=== PATIENT | female | born 1975 | race Two or more races ===

== ENCOUNTER 2017-05-05 17:38 | Emergency (ER) | payer SELFPAY ==
[~2017-05-05] VITALS: Ht 160 cm; Wt 61.2 kg
[2017-05-05 17:50] VITALS: BP 120/69
[2017-05-05] MEDS ORDERED: HYDROcodone/APAP 5/325MG 1 TAB TABLET PO ONE (18:15)
[2017-05-05] MEDS ORDERED: ONDANSETRON ODT 4 MG TAB.RAPDIS. PO ONE (18:15)
[2017-05-05] MEDS ORDERED: ONDANSETRON ODT 4 MG TAB.RAPDIS. ONE (18:16)
[2017-05-05] MEDS ORDERED: HYDR-2762 PO (18:42)
[2017-05-05] MEDS ORDERED: NAPR500T8 PO (18:43)
--- NOTE | 2017-05-05 18:43 | PHYS DOC ---
Past Medical History Past Medical History: No Pertinent History Past Surgical History: Cholecystectomy, Gastric Bypass, Other Additional Past Surgical Histo: D&C Alcohol Use: None Drug Use: None Adult General Chief Complaint Chief Complaint: SHOULDER INJURY HPI HPI Patient is a 41 year old female with history of CAD, high cholesterol, [place], who presents with moderate left shoulder pain that began after she tripped on things left on the floor in the son's room and fell on the shoulder. Patient denies any loss of consciousness. Review of Systems Review of Systems Constitutional: Denies fever or chills [] Musculoskeletal: Left shoulder pain Integument: Denies rash or skin lesions [] Neurologic: Denies headache, focal weakness or sensory changes [] Current Medications Current Medications Current Medications Medications (Trade) Dose Ordered Sig/Sun Start Time Stop Time Status Last Admin Dose Admin Acetaminophen/ Hydrocodone Bitart (Lortab 5/325) 2 tab 1X ONCE 05/05/17 18:15 05/05/17 18:16 DC 05/05/17 18:14 2 TAB Ondansetron HCl (Zofran Odt) 4 mg STK-MED ONCE 05/05/17 18:16 05/05/17 18:17 DC Allergies Allergies Allergies Coded Allergies Type Severity Reaction Last Updated Verified No Known Drug Allergies 06/16/14 No Physical Exam Physical Exam Constitutional: Well developed, well nourished, no acute distress, non-toxic appearance. [] Skin: Warm, dry, no erythema, no rash. [] Back: No tenderness, no CVA tenderness. [] Extremities: Left clavicle is obviously deformed. Limited range of motion to the left upper extremity due to pain. Adequate range of motion to the left fingers. Adequate radial medial and ulnar sensation to the left fingers. + 2 left radial pulse. Cap refill less than 2 seconds and left fingers. Sensation intact to the left upper extremity. Neurologic: Alert and oriented X 3, normal motor function, normal sensory function, no focal deficits noted. [] Psychologic: Affect normal, judgement normal, mood normal. [] Current Patient Data Vital Signs Vital Signs Date Time Temp Pulse Resp B/P (MAP) Pulse Ox O2 Delivery O2 Flow Rate FiO2 05/05/17 18:14 Room Air 05/05/17 17:50 98.0 91 18 95 98.0 EKG EKG [] Radiology/Procedures Radiology/Procedures [] Course & Med Decision Making Course & Med Decision Making Pertinent Labs and Imaging studies reviewed. (See chart for details) []Patient is in the ED with left clavicle pain after falling on the left shoulder. Left shoulder and left clavicle x-rays interpreted by Dr. Henson are positive for clavicle shaft fracture. Patient was placed in a sling discharged with hydrocodone. Follow-up with orthopedic doctor tomorrow by calling his office Dragon Disclaimer Dragon Disclaimer This electronic medical record was generated, in whole or in part, using a voice recognition dictation system. Departure Departure Impression: Primary Impression: Clavicle fracture, shaft Additional Impression: Fall from standing Disposition: HOME, SELF-CARE Condition: STABLE Referrals: Nakita DHALIWAL MD (PCP) ROD FARR II, MD call his office first thing tomorrow morning for follow up appointment Patient Instructions: Clavicle Fracture Additional Instructions: You have left clavicle fracture. Contact the provided orthopedic doctor first thing tomorrow morning for follow-up. Apply ice to the affected extremity. You can elevate it as tolerated. Do not drive or operate machinery on the pain medicine. Scripts Naproxen (NAPROXEN) 500 Mg Tablet. 1 TAB PO BID, #60 TAB 0 Refills Prov: JUSTICE LAUREANO APRN 05/05/17 Hydrocodone Bit/Acetaminophen (HYDROCODONE-APAP 7.5-325 ) 1 Each Tablet 1 TAB PO PRN Q4-6HRS Y for PAIN, #40 TAB 0 Refills Prov: JUSTICE LAUREANO APRN 05/05/17 Problem Qualifiers Primary Impression: Clavicle fracture, shaft Encounter type: initial encounter Fracture type: closed Fracture alignment : displaced Laterality: left Qualified Codes: S42.022A - Displaced fracture of shaft of left clavicle, initial encounter for closed fracture Additional Impression: Fall from standing Encounter type: initial encounter Qualified Codes: W19.XXXA - Unspecified fall, initial encounter JUSTICE LAUREANO APRN May 05, 2017 18:43
--- NOTE | 2017-05-06 08:23 | RAD ---
Left shoulder, 2 views, 05/05/2017: History: Fall, injury There is a comminuted fracture of the clavicle at the junction of its middle and distal thirds. There is mild overriding of the fracture fragments with superior displacement and angulation of the distal end of the proximal fracture fragment. The glenohumeral joint is unremarkable. No additional fracture is seen. IMPRESSION: Displaced left clavicular fracture.
--- NOTE | 2017-05-06 08:24 | RAD ---
Left clavicle, 2 views, 05/05/2017: History: Fall, injury There is a mildly displaced and angulated fracture of the left clavicle as described on the shoulder radiographs. No additional abnormality is seen. IMPRESSION: Acute left clavicular fracture.
== END 2017-05-05 18:47 | disposition home or self-care (01) ==
LOC: ER 17:38
DX: S42.022A Displaced fracture of shaft of left clavicle, initial encounter for closed fracture (principal); I25.10 Atherosclerotic heart disease of native coronary artery without angina pectoris; E78.00 Pure hypercholesterolemia, unspecified; I25.2 Old myocardial infarction; W01.0XXA Fall on same level from slipping, tripping and stumbling without subsequent striking against object, initial encounter; Y93.89 Activity, other specified; Y92.89 Other specified places as the place of occurrence of the external cause; Y99.8 Other external cause status
CPT/HCPCS: 73000; 73030; 99284; Q0162

== ENCOUNTER 2017-05-18 07:47 | Emergency (ER) | payer SELFPAY ==
[~2017-05-18] VITALS: Ht 162.6 cm; Wt 62.1 kg
[~2017-05-18 07:47] MED LIST: HYDR-2762 PO; NAPR500T8 PO
[2017-05-18] MEDS ORDERED: IV NORMAL SALINE 1000ML BAG 1,000 ML IV ONE (08:00)
[2017-05-18 08:03] LABS: BASE EXCESS COOX 1 mmol/L (-3-3); HCO3 COOX 28 mmol/L (21-28); PCO2 COOX 52 mmHg (35-46); PH COOX 7.35 (7.35-7.45); PO2 COOX 79 mmHg (75-108)
[2017-05-18 08:04] LABS: CARBON MONOXIDE 6.9 % (0.0-1.9); FIO2 COOX 21; SAT O2 COOX 95 % (92-99); TOTAL HEMOGLOBIN 13.2 g/dL
[2017-05-18 08:05] LABS: METHEMOGLOBIN 0.3 % (0.0-1.9)
--- NOTE | 2017-05-18 08:07 | EKG ---
[facility] [address] [place] [address] Test Date: 2017-05-18 Test Time: 08:00:10 Pat Name: CHELSEA WEISS Department: Room: Gender: F Otologist: : 1975 Requested By: LUIS F JURADO Order Number: [id number] Reading MD: Gail Beltran Measurements Intervals [place] Rate: 85 P: 78 CO: 134 QRS: 98 QRSD: 84 T: 54 QT: 374 QTc: 445 Interpretive Statements SINUS RHYTHM RIGHTWARD AXIS OTHERWISE NORMAL ECG Electronically Signed On 05-18-2017 20:09:16 CDT by Gail Beltran
[2017-05-18 08:09] LABS: BASO % 1 % (0-3); EOS % 1 % (0-3); HEMATOCRIT 39.6 % (36.0-47.0); HEMOGLOBIN 12.9 g/dL (12.0-15.5); LYMPH # 3.4 x10^3/uL (1.0-4.8); LYMPH % 55 % (24-48); MEAN CORPUSCULAR HEMOGLOBIN 28 pg (25-35); MEAN CORPUSCULAR HGB CONC 33 g/dL (31-37); MEAN CORPUSCULAR VOLUME 85 fL (79-100); MONO % 7 % (0-9); NEUT % 36 % (31-73); PLATELET COUNT 376 x10^3/uL (140-400); RED BLOOD COUNT 4.65 x10^6/uL (3.50-5.40); RED CELL DISTRIBUTION WIDTH 15.3 % (11.5-14.5); WHITE BLOOD COUNT 6.2 x10^3/uL (4.0-11.0)
[2017-05-18 08:26] LABS: CREATININE 0.6 mg/dL (0.6-1.0); GFR 109.1; POTASSIUM 4.2 mmol/L (3.5-5.1)
[2017-05-18 08:31] LABS: ALBUMIN 3.5 g/dL (3.4-5.0); ALBUMIN/GLOBULIN RATIO 0.9 (1.0-1.7); TOTAL BILIRUBIN 0.2 mg/dL (0.2-1.0); TOTAL PROTEIN 7.6 g/dL (6.4-8.2)
[2017-05-18 08:32] LABS: BARBITURATES NEG (NEG); BENZODIAZEPINES NEG (NEG); CANNABINOIDS NEG (NEG); COCAINE POS (NEG); METHADONE NEG (NEG); OPIATES NEG (NEG); PHENCYCLIDINE NEG (NEG)
[2017-05-18 08:35] LABS: ETHANOL 225 mg/dL (0-10)
--- NOTE | 2017-05-18 08:58 | PHYS DOC ---
Past Medical History Past Medical History: No Pertinent History Past Surgical History: Cholecystectomy, Gastric Bypass, Other Additional Past Surgical Histo: D&C Alcohol Use: None Drug Use: None Adult General Chief Complaint Chief Complaint: suicidal ideation HPI HPI Patient is a 42 year old female who presents after being found sleeping in a running car in an enclosed garage. Length of time in car is unknown, pt was lethargic. Brought in by EMS, who was called by children that found pt. She has reportedly had "difficulties" lately, but unclear if this was a suicide attempt. no other history available. Pt's meds are with her, no evidence that she overdosed. Pt later admitted she was trying to harm herself and drank alcohol, denies any ingestions of pills. Review of Systems Review of Systems Unobtainable due to clinical condition. Current Medications Current Medications Current Medications Medications (Trade) Dose Ordered Sig/Sun Start Time Stop Time Status Last Admin Dose Admin Sodium Chloride 1,000 ml @ 1,000 mls/hr 1X ONCE 05/18/17 08:00 05/18/17 08:59 DC 05/18/17 08:25 1,000 MLS/HR Allergies Allergies Allergies Coded Allergies Type Severity Reaction Last Updated Verified No Known Drug Allergies 06/16/14 No Physical Exam Physical Exam Constitutional: Well developed, well nourished, lethargic, smells heavily of etoh HENT: Normocephalic, atraumatic, bilateral external ears normal, oropharynx moist, no oral exudates, nose normal. [] Eyes: PERRLA Neck: Normal range of motion, no tenderness, supple, no stridor. [] Cardiovascular:Heart rate regular with regular rhythm, no murmur [] Lungs & Thorax: Bilateral breath sounds clear to auscultation [] Abdomen: soft, no tenderness, no masses, no pulsatile masses. [] Skin: Warm, dry, hickies on the R side of neck Back: No tenderness, no CVA tenderness. [] Extremities: No tenderness, no cyanosis, no clubbing, ROM intact, no edema. [] Neurologic: clinically intoxicated, withdraws from pain, normal speech when she talks Psychologic: unable to assess Current Patient Data Vital Signs Vital Signs Date Time Temp Pulse Resp B/P (MAP) Pulse Ox O2 Delivery O2 Flow Rate FiO2 10/24/17 07:50 97.4 92 17 102/69 (80) 98 Room Air 97.4 Lab Values Laboratory Tests Test 05/18/17 07:55 05/18/17 08:00 05/18/17 08:17 O2 Saturation 95 % (92-99) Arterial Blood pH 7.35 (7.35-7.45) Arterial Blood pCO2 at Patient Temp 52 mmHg (35-46) H Arterial Blood pO2 at Patient Temp 79 mmHg (75-108) Arterial Blood HCO3 28 mmol/L (21-28) Arterial Blood Base Excess 1 mmol/L (-3-3) Oxyhemoglobin 88.0 % Methemoglobin 0.3 % (0.0-1.9) Carbon Monoxide, Quantitative 6.9 % (0.0-1.9) H FiO2 21 White Blood Count 6.2 x10^3/uL (4.0-11.0) Red Blood Count 4.65 x10^6/uL (3.50-5.40) Hemoglobin 12.9 g/dL (12.0-15.5) Hematocrit 39.6 % (36.0-47.0) Mean Corpuscular Volume 85 fL (79-100) Mean Corpuscular Hemoglobin 28 pg (25-35) Mean Corpuscular Hemoglobin Concent 33 g/dL (31-37) Red Cell Distribution Width 15.3 % (11.5-14.5) H Platelet Count 376 x10^3/uL (140-400) Neutrophils (%) (Auto) 36 % (31-73) Lymphocytes (%) (Auto) 55 % (24-48) H Monocytes (%) (Auto) 7 % (0-9) Eosinophils (%) (Auto) 1 % (0-3) Basophils (%) (Auto) 1 % (0-3) Neutrophils # (Auto) 2.2 x10^3uL (1.8-7.7) Lymphocytes # (Auto) 3.4 x10^3/uL (1.0-4.8) Monocytes # (Auto) 0.4 x10^3/uL (0.0-1.1) Eosinophils # (Auto) 0.1 x10^3/uL (0.0-0.7) Basophils # (Auto) 0.0 x10^3/uL (0.0-0.2) Sodium Level 143 mmol/L (136-145) Potassium Level 4.2 mmol/L (3.5-5.1) Chloride Level 104 mmol/L (98-107) Carbon Dioxide Level 31 mmol/L (21-32) Anion Gap 8 (6-14) Blood Urea Nitrogen 11 mg/dL (7-20) Creatinine 0.6 mg/dL (0.6-1.0) Estimated GFR (Cockcroft-Gault) 109.1 BUN/Creatinine Ratio 18 (6-20) Glucose Level 75 mg/dL (70-99) Calcium Level 9.0 mg/dL (8.5-10.1) Total Bilirubin 0.2 mg/dL (0.2-1.0) Aspartate Amino Transferase (AST) 30 U/L (15-37) Alanine Aminotransferase (ALT) 21 U/L (14-59) Alkaline Phosphatase 83 U/L (46-116) Ammonia < 10 mcmol/L (11-34) L Total Protein 7.6 g/dL (6.4-8.2) Albumin 3.5 g/dL (3.4-5.0) Albumin/Globulin Ratio 0.9 (1.0-1.7) L Salicylates Level < 2.8 mg/dL (2.8-20.0) L Salicylate Last Dose Date Unknown Salicylate Last Dose Time Unknown Acetaminophen Level < 2 mcg/ml (10-30) L Acetaminophen Last Dose Date Unknown Acetaminophen Last Dose Time Unknown Ethyl Alcohol Level 225 mg/dL (0-10) H Urine Opiates Screen Neg (NEG) Urine Methadone Screen Neg (NEG) Urine Barbiturates Neg (NEG) Urine Phencyclidine Screen Neg (NEG) Urine Amphetamine/Methamphetamine Neg (NEG) Urine Benzodiazepines Screen Neg (NEG) Urine Cocaine Screen Pos (NEG) Urine Cannabinoids Screen Neg (NEG) Urine Ethyl Alcohol Pos (NEG) Laboratory Tests 05/18/17 08:00 Laboratory Tests 05/18/17 08:00 EKG EKG []85 bpm, sinus, rightward axis, normal intervals, no ST elevation or depression appreciated, nonischemic T waves, interpreted by or Radiology/Procedures Radiology/Procedures [] Course & Med Decision Making Course & Med Decision Making Pertinent Labs and Imaging studies reviewed. (See chart for details) IV fluids initiated, patient on playground monitor and continuous pulse ox. No signs of hypoxia. air sampling and monitoring shows 83 bpm without appreciable arrhythmia. Pulse ox shows 99% on room air with good waveform, both interpreted by me Alcohol, UDS, lab work, ammonia level, acetaminophen and salicylate levels drawn. She has significantly elevated alcohol level, urine drug screen was positive for cocaine but incidentally not positive for benzos, which she is prescribed. Contacted Herson of the PAT team for evaluation of the patient.\\ Pt admitted to and agreeable to admission. her carboxy hemoglobin slightly elevated, however she is a smoker and she continued to improve with her sobriety in the ED and had no neurologic sequelae. Pt accepted to [facility] for admission. We will send by EMS. Dragon Disclaimer Dragon Disclaimer This electronic medical record was generated, in whole or in part, using a voice recognition dictation system. Departure Departure Impression: Primary Impression: Suicidal ideation Additional Impression: Alcohol abuse Disposition: 65 XFER TO PSYCH HOSP/UNIT Condition: IMPROVED Referrals: Nakita DHALIWAL MD (PCP) Patient Instructions: Alcohol Intoxication, Suicidal Feelings, How to Help Yourself Additional Instructions: We are transferring you to a psychiatric facility for further evaluation. Problem Qualifiers LUIS F JURADO MD May 18, 2017 08:58
[2017-05-18 13:37] VITALS: BP 117/76
[2017-05-21] MEDS ORDERED: OXYC-323 PO (15:09)
[2017-05-21] MEDS ORDERED: DOCU100C28 PO (15:11)
[2017-05-21] MEDS ORDERED: PANT40TA5 PO (15:11)
[2017-05-21] MEDS ORDERED: CYCL10TA2 PO (15:12)
[2017-05-21] MEDS ORDERED: ZOLP10TA4 PO (15:13)
[2017-05-21] MEDS ORDERED: CLON0.5T PO (15:14)
== END 2017-05-18 13:40 ==
LOC: ER 07:47
DX: R45.851 Suicidal ideations (principal); F10.10 Alcohol abuse, uncomplicated; R53.83 Other fatigue
CPT/HCPCS: 36415; 36600; 80053; 80307; 80329; 82140; 82805; 85025; 93005; 96360; 99285; G0480; J7030; G0479

== ENCOUNTER 2017-05-24 05:35 | Day surgery (SDC) | payer OTHER ==
[~2017-05-24] VITALS: Ht 160 cm; Wt 63.5 kg
[~2017-05-24 05:35] MED LIST changes: +CLON0.5T PO; +CYCL10TA2 PO; +DOCU100C28 PO; +OXYC-323 PO; +PANT40TA5 PO; +ZOLP10TA4 PO
[2017-05-24] MEDS ORDERED: IV RINGERS,LACTATED 1000ML 1,000 ML IV SCH (07:00)
[2017-05-24] MEDS ORDERED: fentaNYL PF VIAL 100 MCG/2 ML VIAL IV PRN (07:00)
[2017-05-24] MEDS ORDERED: MORPHINE SULFATE 2 MG/ML DISP.SYRIN. IV PRN (07:00)
[2017-05-24] MEDS ORDERED: HYDROmorphone 2 MG/ML VIAL IV PRN (07:00)
[2017-05-24] MEDS ORDERED: PROCHLORPERAZINE 10 MG/2 ML VIAL. IV PRN (07:00)
[2017-05-24] MEDS ORDERED: LIDOCAINE 1% PF 2 ML VIAL. ID PRN (07:00)
[2017-05-24] MEDS ORDERED: ONDANSETRON PF 4 MG/2 ML VIAL. IV PRN (07:00)
--- NOTE | 2017-05-24 07:37 | DISCH ---
DISCHARGE INSTRUCTIONS Condition on Discharge Condition on Discharge: Stable Activity After Discharge Activity Instructions for Disc: Other, see below Other activity instructions: arm to remain in sling Bathing Instructions: Shower-keep dressing dry Weight Bearing Status after Di: Non weight bearing Diet after Discharge Diet after Discharge: Regular Wound Incision Care Wound/Incision Care: Ice to area for comfort, Keep wound/cast CDI, Change dressing Contacting the DR. after DC Call your doctor for: Concerns you may have Follow-Up Follow up with: Humberto in 2wks ROD FARR II, MD May 24, 2017 07:37
--- NOTE | 2017-05-24 07:39 | PDOC ---
BRIEF OPERATIVE NOTE Date: May 24, 2017 Pre-Op Diagnosis Displaced, closed L clavicle fx Post-Op Diagnosis same Procedure Performed ORIF L clavicle fx Surgeon Humberto Kuhn Anesthesia Type: General Blood Loss 25mL Complications none ROD FARR II, MD May 24, 2017 07:39
[2017-05-24] MEDS ORDERED: ROPIVacaine 0.5% PF 30 ML VIAL. ONE (08:56)
[2017-05-24] MEDS ORDERED: MIDAZOLAM HCL/PF 2 MG/2 ML VIAL. ONE ×2 (08:56→09:01)
[2017-05-24] MEDS ORDERED: PROPOFOL 20 ML IV ONE (09:02)
[2017-05-24] MEDS ORDERED: ONDANSETRON PF 4 MG/2 ML VIAL. ONE (09:02)
[2017-05-24] MEDS ORDERED: fentaNYL PF VIAL 100 MCG/2 ML VIAL ONE (09:02)
[2017-05-24] MEDS ORDERED: LIDOCAINE 2% PF Vial for OR 5 ML VIAL. ONE (09:02)
[2017-05-24] MEDS ORDERED: DEXAMETHASONE SOD PHOS 20 MG/5 ML VIAL. ONE (09:02)
[2017-05-24] MEDS ORDERED: FAMOTIDINE 20 MG/2 ML VIAL ONE (09:02)
[2017-05-24] MEDS ORDERED: HYDROcodone/APAP 10/325 1 TAB TABLET PO ONE (10:00)
[2017-05-24] MEDS ORDERED: GLYCOPYRROLATE 1 MG/5 ML VIAL. ONE (10:29)
[2017-05-24] MEDS: fentaNYL PF VIAL 100 MCG/2 ML VIAL IV PRN ×2 (11:44→11:54)
[2017-05-24] MEDS ORDERED: HYDR-963 PO (12:12)
[2017-05-24] MEDS ORDERED: ONDA4TAB10 SL (12:13)
--- NOTE | 2017-05-24 12:15 | OP ---
DATE OF SURGERY: 05/24/2017 SURGEON: Porfirio Farr MD [employer]GRAMMING [employer]: Kait Kuhn. PREOPERATIVE DIAGNOSIS: Closed left displaced clavicle fracture. POSTOPERATIVE DIAGNOSIS: Closed left displaced clavicle fracture. PROCEDURE PERFORMED: Open reduction internal fixation, left clavicle fracture. COMPONENTS INSERTED: [employer] 8-hole locking clavicle plate. COMPLICATIONS: None. BLOOD LOSS: 25 mL. ANESTHESIA: General plus regional nerve block. REASON FOR PROCEDURE: The patient is a very pleasant 42-year-old female who suffered the above injury after a fall. We had seen and evaluated her in my nurse practitioner's outpatient clinic. For details, please see the full dictated outpatient notes. We had discussion of risks, benefits, alternatives and rationale behind operative versus nonoperative intervention and she elected to proceed with surgery. DESCRIPTION OF PROCEDURE: The patient was greeted in the preoperative area by myself. The correct extremity was marked and verified. She was taken back to the operative suite and antibiotics were started en route. Before coming back to the OR she had successful placement of a regional nerve block by the Anesthesiology team and was taken back to the operative suite. Once in the OR, she was transferred gently supine to the OR table and secured to the bed with all pressure points padded. She had successful induction with general anesthetic. We then set her up in beach chair position with a large pad under her legs maintaining her C-spine in a neutral position. We then proceeded to prep and drape the left upper extremity in our usual sterile fashion and conducted a standard preoperative timeout. I then palpated and marked her surface anatomy and made a straight incision over her clavicle. I dissected subcutaneous tissue with combination of [place] and electrocautery. Supraclavicular nerves were transected. I then incised the fascia in line with the skin incision, used a periosteal elevator and electrocautery to expose the clavicular shaft and fracture site. I debrided the early soft callus and more fully exposed the fracture site with a combination of rongeur, small curette and a metal tip suction device. After this, I brought in C-arm and used a 22 gauge needle to localize the AC joint. We then withdrew C-arm and I used a [id number] reduction forceps to achieve a reduction. We then brought in C-arm, confirmed good reduction. I then placed my plate and used C-arm to check this position and then clamped my plate in place to the medial fragment with a lobster claw. I then placed a nonlocking screw medial and lateral to the fracture site to help reduce the plate to the bone and hold everything in position. I then placed the remainder of the locking screws, 3 lateral to the fracture site and 4 medial. I then removed my reduction clamps and checked my fluoroscopic imaging and I was happy with the plate position and fracture reduction. I then irrigated out the operative field and closed the fascia with simple interrupted 0 Vicryl followed by inverted interrupted 2-0 for the subcutaneous tissue and running 4-0 Monocryl for the skin. Prior to completion of wound closure, all counts were reported correct x 2. No complications. The patient tolerated the surgery well. At the conclusion of the surgery, she was awakened from anesthesia and transferred gently supine to the recovery room cart. She was taken to PACU in a stable and extubated condition. Postoperative plan is to discharge her home. She will be nonweightbearing on left upper extremity. Her arm will remain in the sling. We will see her back in 2 weeks, sooner should problem arise. PORFIRIO FARR MD DR: PRASHANT/marietta JOB#: [id number] / [id number] DAMI
[2017-05-24] MEDS ORDERED: SEVOFLURANE 61 TO 120 MINUTES. IH ONE (12:51)
[2017-05-24] MEDS ORDERED: PHENYLEPHRINE in 0.9% NACL PF 1 MG/10 ML DISP.SYRIN. IV ONE (12:51)
[2017-05-24 13:02] VITALS: BP 96/65
== END 2017-05-24 14:21 | disposition home or self-care (01) ==
LOC: SURG 05:35
PROVIDERS: ATTEND Orthopaedic Surgery Sports Medicine
DX: S42.002A Fracture of unspecified part of left clavicle, initial encounter for closed fracture (principal); X58.XXXA Exposure to other specified factors, initial encounter; Y93.89 Activity, other specified; Y92.89 Other specified places as the place of occurrence of the external cause; Y99.8 Other external cause status; Z90.49 Acquired absence of other specified parts of digestive tract; Z87.39 Personal history of other diseases of the musculoskeletal system and connective tissue; Z72.89 Other problems related to lifestyle; Z87.891 Personal history of nicotine dependence; F41.9 Anxiety disorder, unspecified
CPT/HCPCS: 23515; 76000; A4215; C1713; J0690; J0780; J1100; J2250; J2370; J2405; J2704; J2795; J3010; J3490; S0028; J2001

== ENCOUNTER 2017-08-25 12:17 | Emergency (ER) | payer OTHER | END 2017-08-25 13:12 | disposition home or self-care (01) | LOC: ER 13:12 | DX: R05 Cough (principal); R50.9 Fever, unspecified; M79.1 Myalgia | CPT/HCPCS: 99283 ==

== ENCOUNTER 2018-04-15 21:13 | Emergency (ER) | payer OTHER ==
[~2018-04-15] VITALS: Ht 162.6 cm; Wt 61.2 kg
[~2018-04-15 21:13] MED LIST changes: +HYDR-963 PO; +ONDA4TAB10 SL; +OSEL75CA PO
[2018-04-15 21:45] VITALS: BP 122/74
[2018-04-15] MEDS ORDERED: KETOROLAC 60 MG/2 ML INJ. IM ONE (22:00)
[2018-04-15] MEDS ORDERED: CYCL5TAB PO (22:31)
[2018-04-15] MEDS ORDERED: IBUP-1060 PO (22:31)
--- NOTE | 2018-04-15 22:59 | RAD ---
AP and lateral right forearm radiographs 04/15/2018 CLINICAL HISTORY: Mid forearm pain post injury. AP and lateral digital radiographs of the right forearm were obtained. No fracture or dislocation of the right forearm is seen. Mild to moderate degenerative changes are seen involving the right elbow, IMPRESSION: No fracture or dislocation of the right forearm is seen. Electronically signed by: Morales Solis MD (04/15/2018 10:55 PM) [facility]
--- NOTE | 2018-04-15 23:26 | PHYS DOC ---
Past Medical History Past Medical History: Other Additional Past Medical Histor: GASTRIC BYPASS Past Surgical History: Cholecystectomy, Gastric Bypass, Other Additional Past Surgical Histo: D&C,GASTRIC BIPASS Alcohol Use: None Drug Use: None Adult General Chief Complaint Chief Complaint: UPPER EXTREMITY INJURY HPI HPI Patient is a 42 year old female who presents with right forearm strain. Patient was at work earlier today. She was lifting some heavy object and had some sort of rotational injury of the right forearm. She complains of pain that she describes to be worse with activity. The pain begins at the elbow and radiates to the ulnar aspect of the volar wrist. Pain is worse with pronation. No additional injuries. Review of Systems Review of Systems Constitutional: Denies Eyes: Denies change HENT: Denies Respiratory: Denies Cardiovascular: No additional info GI: Denies abdominal pain : Denies dysuria Musculoskeletal: Denies back pain Integument: Denies rash Neurologic: Denies headache Endocrine: Denies polyuria All other systems were reviewed and found to be within normal limits, except as documented in this note. Current Medications Current Medications Current Medications Medications (Trade) Dose Ordered Sig/Sun Start Time Stop Time Status Last Admin Dose Admin Ketorolac Tromethamine (Toradol Im) 60 mg 1X ONCE 04/15/18 22:00 04/15/18 22:01 DC 04/15/18 22:00 60 MG Allergies Allergies Allergies Coded Allergies Type Severity Reaction Last Updated Verified No Known Drug Allergies 05/24/17 No Physical Exam Physical Exam Constitutional: Well developed, well nourished, no acute distress, non-toxic appearance Neck: Normal range of motion, no tenderness Cardiovascular:Heart rate regular rhythm, no murmur Lungs & Thorax: Bilateral breath sounds clear Skin: Warm, dry Back: No tenderness Extremities: Tenderness along the right brachioradialis muscle. Pain with pronation. No obvious or acute deformity seen. Neurologic: Alert and oriented X 3 Psychologic: Affect normal Current Patient Data Vital Signs Vital Signs Date Time Temp Pulse Resp B/P (MAP) Pulse Ox O2 Delivery O2 Flow Rate FiO2 04/15/18 21:45 97.1 68 20 122/74 (90) 100 Room Air 97.1 EKG EKG [] Radiology/Procedures Radiology/Procedures [] Course & Med Decision Making Course & Med Decision Making Pertinent Labs and Imaging studies reviewed. (See chart for details) Patient is evaluated in the emergency department for a simple strain of the right forearm. She did have an x-ray that did not reveal any acute findings. Patient was discharged home with ibuprofen and Flexeril for pain control. She was given a dose of Toradol intramuscularly in the emergency room which did help with her pain symptoms. Dragon Disclaimer Dragon Disclaimer This electronic medical record was generated, in whole or in part, using a voice recognition dictation system. Departure Departure Impression: Primary Impression: Strain of forearm Disposition: HOME, SELF-CARE Condition: GOOD Patient Instructions: Strain-SportsMed, Sprain, [id number] Scripts Ibuprofen (IBUPROFEN) 800 Mg Tablet 800 MG PO PRN TID PRN for PAIN, #21 TAB take with food or milk to avoid upsetting stomach Prov: BRI FLORES DO 04/15/18 Cyclobenzaprine Hcl (CYCLOBENZAPRINE HCL) 5 Mg Tablet 5 MG PO PRN TID PRN for MUSCLE SPASMS, #15 TAB Prov: BRI FLORES DO 04/15/18 BRI FLORES DO Apr 15, 2018 23:26
== END 2018-04-15 23:00 | disposition home or self-care (01) ==
LOC: ER 21:13
DX: S56.911A Strain of unspecified muscles, fascia and tendons at forearm level, right arm, initial encounter (principal); X50.0XXA Overexertion from strenuous movement or load, initial encounter; Y93.89 Activity, other specified; Y92.69 Other specified industrial and construction area as the place of occurrence of the external cause; Y99.0 Civilian activity done for income or pay
CPT/HCPCS: 73090; 96372; 99284; J1885

== ENCOUNTER 2019-01-05 10:39 | Emergency (ER) | payer OTHER ==
[~2019-01-05] VITALS: Ht 162.6 cm; Wt 61.2 kg
[~2019-01-05 10:39] MED LIST changes: +CYCL5TAB PO; -HYDR-2762 PO; +HYDR-2765 PO; +HYDR-3135 PO; -HYDR-963 PO; +IBUP-1060 PO; -OXYC-323 PO; +OXYC1TAB15 PO
[2019-01-05 10:48] VITALS: BP 124/84
[2019-01-05] MEDS ORDERED: HYDR-3164 PO (11:06)
[2019-01-05] MEDS ORDERED: AMOX500C PO (11:06)
--- NOTE | 2019-01-05 11:06 | PHYS DOC ---
Past Medical History Past Medical History: Other Additional Past Medical Histor: GASTRIC BYPASS Past Surgical History: Cholecystectomy, Gastric Bypass, Other Additional Past Surgical Histo: D&C,GASTRIC BIPASS Smoking: Quit Greater Than 1 Year Alcohol Use: None Drug Use: None Adult General Chief Complaint Chief Complaint: DENTAL PROBLEM HPI HPI Patient is a 43-year-old female presents to the emergency department for evaluation of left upper anterior molar pain, which has developed over the past few days, and has been worsening. The pain radiates towards her left cheek area. She has not had any fevers or chills. It is painful to eat on the left side of her mouth. She has an appointment scheduled with her dentist for this coming Wednesday morning, which was the soonest she could get in, but the pain has been worsening. There are no other alleviating or exacerbating factors to her symptoms. Review of Systems Review of Systems Constitutional: Denies fever or chills [] Eyes: Denies change in visual acuity, redness, or eye pain [] HENT: Denies nasal congestion or sore throat [] Respiratory: Denies cough or shortness of breath [] Cardiovascular: No additional information not addressed in HPI [] Musculoskeletal: Denies back pain or joint pain [] Integument: Denies rash or skin lesions [] Neurologic: Denies headache, focal weakness or sensory changes [] Allergies Allergies Allergies Coded Allergies Type Severity Reaction Last Updated Verified No Known Drug Allergies 05/24/17 No Physical Exam Physical Exam PHYSICAL EXAM: CONSTITUTIONAL: Well developed, well nourished HEAD: normocephalic, atraumatic EENT: PERRL, EOMI. Conjunctivae normal color, sclerae non-icteric; moist mucous membranes. There are several teeth with dental fillings, there is some mild edema to the gingiva surrounding the left upper anterior molar, remainder the dentition is nontender. There is no other obvious exam evidence of dental abscess, there is no facial swelling. NECK: Supple, non-tender; no meningismus. LUNGS: Lungs CTA, breathing even and unlabored. Normal air movement. HEART: Regular rate and rhythm, no murmur NEURO: Alert; normal speech and cognition; CN's grossly intact; strength grossly intact without focal deficit. EKG EKG [] Radiology/Procedures Radiology/Procedures [] Course & Med Decision Making Course & Med Decision Making Discussed importance of dental follow-up as scheduled, and return precautions. KTRACS reviewed. Pt has had gastric bypass and states that she is not supposed to take NSAIDs, I do not see a alternative to short course of narcotic pain medication at this time. Dragon Disclaimer Dragon Disclaimer This electronic medical record was generated, in whole or in part, using a voice recognition dictation system. Departure Departure Impression: Primary Impression: Pain, dental Disposition: HOME, SELF-CARE Condition: STABLE Referrals: JALEN PENA MD (PCP) Patient Instructions: Dental Abscess, Dental Pain Scripts Hydrocodone/Apap 5-325 (NORCO 5-325 TABLET) 1 Each Tablet 1 TAB PO TID PRN for PAIN, #12 TAB Prov: AMANDO MANZANO MD 01/05/19 Amoxicillin (AMOXICILLIN) 500 Mg Capsule 1 CAP PO TID, #30 CAP Prov: AMANDO MANZANO MD 01/05/19 AMANDO MANZANO MD Jan 05, 2019 11:06
== END 2019-01-05 11:14 | disposition home or self-care (01) ==
LOC: ER 10:39
DX: K08.89 Other specified disorders of teeth and supporting structures (principal); R51 Headache; Z87.891 Personal history of nicotine dependence
CPT/HCPCS: 99283

== ENCOUNTER → 2019-01-23 | Outpatient (CLI) | payer OTHER ==
[2019-01-14 14:17] VITALS: BP 134/60
[~2019-01-23] MED LIST changes: +AMOX500C PO; +HYDR-3164 PO; -PANT40TA5 PO; +PANT40TA77 PO
[2019-01-23 15:43] LABS: BASO % 1 % (0-3); EOS # 0.1 x10^3/uL (0.0-0.7); EOS % 1 % (0-3); HEMATOCRIT 34.6 % (36.0-47.0); HEMOGLOBIN 10.9 g/dL (12.0-15.5); LYMPH # 1.1 x10^3/uL (1.0-4.8); LYMPH % 26 % (24-48); MEAN CORPUSCULAR HEMOGLOBIN 24 pg (25-35); MEAN CORPUSCULAR HGB CONC 32 g/dL (31-37); MEAN CORPUSCULAR VOLUME 77 fL (79-100); MONO # 0.3 x10^3/uL (0.0-1.1); MONO % 6 % (0-9); NEUT # 2.9 x10^3uL (1.8-7.7); NEUT % 66 % (31-73); PLATELET COUNT 313 x10^3/uL (140-400); RED BLOOD COUNT 4.47 x10^6/uL (3.50-5.40); RED CELL DISTRIBUTION WIDTH 20.7 % (11.5-14.5); WHITE BLOOD COUNT 4.3 x10^3/uL (4.0-11.0)
[2019-01-23 15:57] LABS: BILIRUBIN,URINE NEGATIVE (NEG); CLARITY,URINE CLEAR; COLOR,URINE YELLOW; NITRITE,URINE NEGATIVE (NEG); PROTEIN,URINE NEGATIVE (NEG-TRACE)
[2019-01-23 16:04] LABS: BACTERIA,URINE FEW /HPF (0-FEW); RBC,URINE RARE /HPF (0-2); SQUAMOUS EPITHELIAL CELL,UR FEW /LPF
[2019-01-23 17:35] LABS: ANISOCYTOSIS SLIGHT; PLT ESTIMATE ADEQUATE (ADEQUATE)
[2019-01-23 20:25] LABS: ALBUMIN 2.9 g/dL (3.4-5.0); CALCIUM 8.4 mg/dL (8.5-10.1); CREATININE 0.6 mg/dL (0.6-1.0); GFR 108.6; POTASSIUM 4.6 mmol/L (3.5-5.1); TOTAL BILIRUBIN 0.3 mg/dL (0.2-1.0); TOTAL PROTEIN 5.7 g/dL (6.4-8.2)
--- NOTE | 2019-01-30 10:03 | NUR ---
FAXED PRE - OP TEST REPORTS TO OFFICE 01/24/2019 AT 1205 AND RECEIVED TRANSMITTAL CONFIRMATION.FAXED GEOFFREY ARMIJO'S FINAL REPORT TO 'S OFFICE 01/27/2019 AT 0950 ND RECEIVED TRANSMITTAL CONFIRMATION.
== END | disposition home or self-care (01) ==
LOC: SURGPAT 14:31
PROVIDERS: ATTEND Obstetrics & Gynecology
DX: Z01.812 Encounter for preprocedural laboratory examination (principal)
CPT/HCPCS: 36415; 80053; 81001; 85025; 87086

== ENCOUNTER 2019-02-01 06:12 | Observation (INO) | payer OTHER ==
[~2019-02-01] VITALS: Ht 160 cm; Wt 65.8 kg
[2019-02-01] VITALS (7 sets, daily range): BP systolic 99–110; BP diastolic 60–72
[~2019-02-01 06:12] MED LIST changes: +BUPIVACAINE-EPI 0.25%-1:200000 MPF 30 ML VIAL. ONE; +ESTROGENS, CONJ VAGINAL CREAM 30GM TUBE. ONE; +METHYLENE BLUE 1% 10 ML VIAL. ONE
[2019-02-01] MEDS ORDERED: PROCHLORPERAZINE 10 MG/2 ML VIAL. IV PRN (07:00)
[2019-02-01] MEDS ORDERED: fentaNYL PF VIAL 100 MCG/2 ML VIAL IV PRN (07:00)
[2019-02-01] MEDS ORDERED: IV RINGERS,LACTATED 1000ML 1,000 ML IV SCH (07:00)
[2019-02-01] MEDS ORDERED: LIDOCAINE 1% PF 2 ML VIAL. ID PRN (07:00)
[2019-02-01] MEDS ORDERED: ONDANSETRON PF 4 MG/2 ML VIAL. IV PRN ×2 (07:00→09:30)
[2019-02-01] MEDS ORDERED: MORPHINE SULFATE 2 MG/ML VIAL. IV PRN ×2 (07:00→09:30)
[2019-02-01] MEDS ORDERED: HYDROmorphone 2 MG/ML VIAL IV PRN (07:00)
[2019-02-01] MEDS ORDERED: PROPOFOL 20 ML IV ONE (07:03)
[2019-02-01] MEDS ORDERED: SUCCINYLCHOLINE 200 MG/10 ML VIAL. ONE (07:03)
[2019-02-01] MEDS ORDERED: LIDOCAINE 2% PF 5 ML VIAL. ONE (07:03)
[2019-02-01] MEDS ORDERED: fentaNYL PF VIAL 100 MCG/2 ML VIAL ONE ×2 (07:03→09:26)
[2019-02-01] MEDS ORDERED: ROCURONIUM 50 MG/5 ML VIAL. ONE (07:03)
[2019-02-01] MEDS ORDERED: INDIGOTINDISULFONATE SODIUM 40 MG/5 ML AMPUL. IV ONE (07:15)
[2019-02-01] MEDS ORDERED: FAMOTIDINE 20 MG/2 ML VIAL ONE (07:50)
[2019-02-01] MEDS ORDERED: DEXAMETHASONE SOD PHOS 4 MG/ML VIAL ONE (07:50)
[2019-02-01] MEDS ORDERED: SEVOFLURANE 61 TO 120 MINUTES. IH ONE (07:50)
[2019-02-01] MEDS ORDERED: NEOSTIGMINE METHYLSULFATE 5 MG/5 ML SYRINGE. ONE (08:18)
[2019-02-01] MEDS ORDERED: GLYCOPYRROLATE 1 MG/5 ML VIAL. ONE (08:18)
[2019-02-01] MEDS ORDERED: ONDANSETRON PF 4 MG/2 ML VIAL. ONE (08:18)
--- NOTE | 2019-02-01 09:23 | PDOC ---
BRIEF OPERATIVE NOTE Date: Feb 01, 2019 Pre-Op Diagnosis menorrhagia, dub, dysmenorrhea Post-Op Diagnosis same Procedure Performed LAVH with bilateral salpingectomy Surgeon Dr. Nayeli Hernandez Technology Coach Elen PARRA Anesthesiologist Dr. Marino Anesthesia Type: General Blood Loss 50cc IV Fluid 1L Urine Output 60cc clear via paul Specimens Obtained cervix, uterus, bilateral tubes Findings small uterus, normal bilateral tubes and ovaries, no significant adhesive disease observed Complications none Operative Note [id number] NAYELI HERNANDEZ MD Feb 01, 2019 09:23
[2019-02-01] MEDS ORDERED: 0.9 % SODIUM CHLORIDE 10 ML DISP.SYRIN. IV PRN (09:30)
[2019-02-01] MEDS ORDERED: NALOXONE 0.4 MG/ML VIAL. IV PRN (09:30)
[2019-02-01] MEDS ORDERED: ZOLPIDEM 5 MG TABLET. PO PRN (09:30)
[2019-02-01] MEDS ORDERED: oxyCODONE/APAP 5/325 1 TAB TABLET PO PRN (09:30)
[2019-02-01] MEDS ORDERED: MAG HYDROX/ALUMINUM HYD/SIMETH 30 ML ORAL.SUSP PO PRN (09:30)
[2019-02-01] MEDS: fentaNYL PF VIAL 100 MCG/2 ML VIAL IV PRN ×3 (09:30→10:15)
[2019-02-01] MEDS ORDERED: diphenhydrAMINE HCL 25 MG CAPSULE PO PRN (09:30)
[2019-02-01] MEDS ORDERED: MAGNESIUM HYDROXIDE 2,400 MG/30 ML ORAL.SUSP. PO PRN (09:30)
[2019-02-01] MEDS ORDERED: SIMETHICONE 80 MG TAB.CHEW PO PRN (09:30)
[2019-02-01] MEDS ORDERED: CALCIUM CARBONATE 500 MG TAB.CHEW PO PRN (09:30)
[2019-02-01] MEDS ORDERED: LACTULOSE 20 GM/30 ML SOLUTION. PO PRN (09:30)
[2019-02-01] MEDS ORDERED: diphenhydrAMINE 50 MG/ML VIAL IV PRN (09:30)
--- NOTE | 2019-02-01 09:54 | OP ---
DATE OF SURGERY: 02/01/2019 PREOPERATIVE DIAGNOSES: Menorrhagia, dysmenorrhea, and dysfunctional bleeding with anemia. POSTOPERATIVE DIAGNOSES: Menorrhagia, dysmenorrhea, and dysfunctional bleeding with anemia. PROCEDURE: Laparoscopic-assisted vaginal hysterectomy with bilateral salpingectomy. SURGEON: Richardson Hernandez MD SERVICER TRAVEL TRAILERS: first yelitza Yip. ANESTHESIOLOGIST: Dr. Marino. ANESTHESIA: General. ESTIMATED BLOOD LOSS: 50 mL. URINE OUTPUT: 60 mL clear via Caruso catheter. IV FLUIDS: 1 liter of Crystalloid. SPECIMENS: Cervix, uterus, and bilateral tubes. FINDINGS: A small normal uterus with normal bilateral tubes and ovaries. No significant adhesive disease was observed. COMPLICATIONS: None. DESCRIPTION OF PROCEDURE: This patient was taken to the operating room where general anesthesia was placed. The patient was placed in a dorsal lithotomy position in [facility]. The patient's abdomen and vagina were both prepped and draped in the normal sterile fashion and a Caruso catheter had been inserted prior to my arrival. Upon my arrival, a timeout was performed, which everyone agreed on the procedure, the patient that she had received her antibiotics and we then did begin. A bivalve speculum was placed in the patient's vagina. A single-tooth tenaculum was used to grasp the anterior lip of the cervix. A 10 mL of 0.25% Marcaine with epinephrine was used to circumferentially inject around the cervix for both hemodissection and hemostatic purposes later. The Valtchev uterine manipulator was placed through the endocervical os, locked on the single tooth tenaculum and the bivalve speculum was then removed. Top gloves were discarded and changed. Attention was then turned to the abdomen where a small supraumbilical skin incision was made with the scalpel. A curved Tatianna was used to dissect through the subcuticular layer to the fascia. The 5 mm Visiport was used to directly enter the abdominal cavity. Opening patient pressure was 3-4 mmHg. Carbon dioxide gas was used to then appropriately insufflate the abdominal cavity to maintain a pressure of 15 mmHg. Once we were in and direct abdominal placement was confirmed via the laparoscope, the patient was placed in Trendelenburg position. The abdominal wall was transilluminated with the scope, finding an area clear of any vasculature, making an area on the left and right lower quadrants and placing 5 mm disposable trocars in under direct visualization, 4-5 mL of air were placed in these cuff. Once these were in, the scope was moved laterally to look at the umbilical port, it was also clear and a 4-5 mL of air was placed here as well with excellent results. At this point, the left tube and ovary were elevated. The ureter was seen coursing low in the pelvis, going above the ovary, below the tube to save the ovaries per the patient's request. The LigaSure was used to do a salpingectomy, crossing the left uterine ovarian pedicle and the left round ligament, cauterizing and cutting with the LigaSure. The bladder flap was created sharply. It was elevated while pushing the uterus in cephalad, the monopolar hook was used to go across that and gently peel down the bladder, peeled down very nicely and the cervix was easily seen. Then, this exact same stuff was done on the right side, first finding the tube and ovary, they were normal, finding the ureter coursing low, staying above the ovary, below the tube, doing a salpingectomy on the right, crossing the right uterine ovarian pedicle, cauterizing and cutting with the LigaSure and then the right round ligament as well. Then, making sure meeting that bladder flap anteriorly, making sure it was down and obtaining the uterine vessels on the right side, then going to the left side, obtaining the uterine vessels and staying vertical, hugging the cervix, going down through the cardinal and broad ligaments to the uterosacral, very low on the left. The right side going down as well towards the uterosacral, cauterizing and cutting with the LigaSure. The uterus was completely free posteriorly, the bladder was down anteriorly and it was completely blanched and mobile. At this point, everything was removed from the abdomen and attention was turned vaginally. The single tooth and Valtchev were removed. Thyroid Zuhair clamps were placed on the anterior and posterior lips of the cervix respectively. She had a good second to third degree, uterine prolapse. A weighted speculum was placed in the posterior cul-de-sac and a scalpel was used to make a circumferential incision in the cervix. It peeled up easily on both sides. The posterior cul-de-sac was actually sharply entered. A #0 Vicryl stitch was used to secure the posterior peritoneum to the vaginal cuff and tagging it with a curved Tatianna clamp and cutting and passing the needle off. The short weighted vaginal speculum was removed and replaced with the long weighted Nelida speculum in the posterior cul-de-sac. An open Ray-Alaina 4 x 4 was used to gently push up the anterior bladder peritoneum until we entered the anterior cul-de-sac. The curved Irma was placed in here. The left side, there was no pedicle left at all, there were some filmy stuff that was cauterized and the left side was completely free. The right side still had some, so I placed curved Serge clamps x 2 around the right uterosacral ligament, double clamping them with curved Serge's, cutting with curved Worthy scissors, and suture ligating x 2 with 0 Vicryl, taking the second one through the vaginal cuff securing uterosacral ligament to the vaginal cuff, tagging it with a straight Tatianna clamp and cutting and passing the needle off. The remaining pedicle was delineated with the curved mixture. The right angle clamp and the vaginal LigaSure was used to cauterize and cut the remaining pedicle on the right side. Once this was done, the cervix, uterus, bilateral tubes were delivered in toto and passed off for permanent pathology. Long Allis was used to grasp the anterior bladder peritoneum and a sponge stick was used to examine all the pedicles. Once they were found to be hemostatic, the long Nelida speculum in the posterior cul-de-sac was removed and replaced with the short weighted vaginal speculum. The 2-0 Vicryl was taken through the anterior bladder peritoneum, left uterosacral ligament, posterior peritoneum, and right uterosacral ligament, thus closing the peritoneum in a pursestring like fashion. The right uterosacral tag was clipped as well, so all that remained was that posterior cuff tag. So a full length 2-0 Vicryl was used to close the cuff in a running locked fashion from anterior to posterior and tied to that posterior cuff tag. Excellent results. It was completely hemostatic. No bleeding. Sponge stick was used to examine it and it was dry. So, everything was removed from the vagina. All sponge, lap, and needle counts were correct x 2 by OR personnel. All gloves were discarded and changed. A second look was taken from above, reinsufflating gas, placing back in Trendelenburg, copious irrigation. There was some slight bleeding from the left cuff area, the LigaSure was used to cauterize this with excellent results. Clear fluid returned. I was able to identify the appendix. The right upper quadrant was normal. The right and left pericolic gutters were clear and the cuff remained hemostatic. Tisseel was placed over the remaining pedicles. Both ovaries were left and normal. Once all of this was done, the air was released from all 3 trocar sites. The left and right trocars were removed under direct visualization. These were hemostatic. Gas was released from the umbilical port. All three port sites were closed with 4-0 nylon at the skin and injected with local. The patient was then awakened from anesthesia, extubated, and is currently being brought to Recovery Room in stable condition. RICHARDSON HERNANDEZ MD DR: ISMAEL/marietta JOB#: [id number] / [id number]
[2019-02-01] MEDS: HYDROcodone/APAP 5/325MG 1 TAB TABLET PO PRN ×3 (11:04→22:54)
[2019-02-02 04:44] LABS: CALCIUM 8.1 mg/dL (8.5-10.1); CREATININE 0.5 mg/dL (0.6-1.0)
[2019-02-02 07:00] VITALS: BP 109/69
[2019-02-02] MEDS: HYDROcodone/APAP 5/325MG 1 TAB TABLET PO PRN ×2 (07:01→11:09)
--- NOTE | 2019-02-02 08:54 | PDOC ---
SURGICAL PROGRESS NOTE Subjective Doing well without complaints scant VB some nausea from pain meds is main complaint Vital Signs Vital Signs Date Time Temp Pulse Resp B/P (MAP) Pulse Ox O2 Delivery O2 Flow Rate FiO2 02/02/19 08:30 Room Air 02/02/19 07:01 18 02/02/19 07:00 98.4 80 109/69 (82) 98 98.4 02/01/19 10:30 10.0 I&O Intake and Output 02/02/19 07:00 Intake Total 2950 ml Output Total 110 ml Balance 2840 ml Intake Oral 1700 ml IV Total 1250 ml Output Urine Total 60 ml Estimated Blood Loss 50 ml # Voids 4 # Bowel Movements 1 PATIENT HAS A VILLARREAL: No General: Alert, Oriented X3, Cooperative, No acute distress HEENT: Atraumatic Heart: Regular rate Abdomen: Soft, No tenderness, Other (all port sites c/d/i) Extremities: No clubbing, No cyanosis, No edema, No tenderness/swelling Skin: No rashes, No breakdown Neuro: Normal speech Psych/Mental Status: Mental status NL, Mood NL Labs Laboratory Tests Test 02/01/19 06:26 02/02/19 03:05 Bedside Urine HCG, Qualitative Hcg negative (Negative) Hematocrit 29.2 % (36.0-47.0) Sodium Level 141 mmol/L (136-145) Potassium Level 4.0 mmol/L (3.5-5.1) Chloride Level 106 mmol/L (98-107) Carbon Dioxide Level 28 mmol/L (21-32) Anion Gap 7 (6-14) Blood Urea Nitrogen 13 mg/dL (7-20) Creatinine 0.5 mg/dL (0.6-1.0) Estimated GFR (Cockcroft-Gault) 134.0 Glucose Level 85 mg/dL (70-99) Calcium Level 8.1 mg/dL (8.5-10.1) Laboratory Tests Test 02/02/19 03:05 Hematocrit 29.2 % (36.0-47.0) Sodium Level 141 mmol/L (136-145) Potassium Level 4.0 mmol/L (3.5-5.1) Chloride Level 106 mmol/L (98-107) Carbon Dioxide Level 28 mmol/L (21-32) Anion Gap 7 (6-14) Blood Urea Nitrogen 13 mg/dL (7-20) Creatinine 0.5 mg/dL (0.6-1.0) Estimated GFR (Cockcroft-Gault) 134.0 Glucose Level 85 mg/dL (70-99) Calcium Level 8.1 mg/dL (8.5-10.1) Assessment/Plan POD #1 s/p LAVH/bilateral salpingectomy Routine PO care has narcotic meds at home NO driving while on them keep scheduled follow up with me in one week gave zofran, prn for nausea/ flexaril for back spasms (not to be used in conjunction with narcotics) NPV x 6 weeks light/limited activity x 2 weeks call or return sooner for any other questions not limited to but including pain unrelieved with pain meds, increawsed or unexplained vaginal bleeding or T>100.4 RICHARDSON MONTEJO MD Feb 02, 2019 08:54
--- NOTE | 2019-02-02 08:57 | PDOC3 ---
Discharge Summary Visit Information Date of Admission: Feb 01, 2019 Date of Discharge: Feb 02, 2019 Final Diagnosis menorrhagia to anemia Brief Hospital Course Allergies Allergies Coded Allergies Type Severity Reaction Last Updated Verified ibuprofen Allergy Severe severe stomach pain 02/01/19 Yes Vital Signs Vital Signs Date Time Temp Pulse Resp B/P (MAP) Pulse Ox O2 Delivery O2 Flow Rate FiO2 02/02/19 08:30 Room Air 02/02/19 07:01 18 02/02/19 07:00 98.4 80 109/69 (82) 98 98.4 02/01/19 10:30 10.0 Lab Results Laboratory Tests Test 02/01/19 06:26 02/02/19 03:05 Bedside Urine HCG, Qualitative Hcg negative (Negative) Hematocrit 29.2 % (36.0-47.0) Sodium Level 141 mmol/L (136-145) Potassium Level 4.0 mmol/L (3.5-5.1) Chloride Level 106 mmol/L (98-107) Carbon Dioxide Level 28 mmol/L (21-32) Anion Gap 7 (6-14) Blood Urea Nitrogen 13 mg/dL (7-20) Creatinine 0.5 mg/dL (0.6-1.0) Estimated GFR (Cockcroft-Gault) 134.0 Glucose Level 85 mg/dL (70-99) Calcium Level 8.1 mg/dL (8.5-10.1) Laboratory Tests Test 02/02/19 03:05 Hematocrit 29.2 % (36.0-47.0) Sodium Level 141 mmol/L (136-145) Potassium Level 4.0 mmol/L (3.5-5.1) Chloride Level 106 mmol/L (98-107) Carbon Dioxide Level 28 mmol/L (21-32) Anion Gap 7 (6-14) Blood Urea Nitrogen 13 mg/dL (7-20) Creatinine 0.5 mg/dL (0.6-1.0) Estimated GFR (Cockcroft-Gault) 134.0 Glucose Level 85 mg/dL (70-99) Calcium Level 8.1 mg/dL (8.5-10.1) Brief Hospital Course Ms. Dorsey is a 43 old female who presented with menorrhagia to anemia desiring definitive therapy. She underwent a LAVH with bilateral salpingectomy yesterday. She has had an unremarkable course and been afebrile, VSS, ambulating well, scant VB, tolerating PO. Will be discharged to home later today Discharge Information Condition at Discharge: Stable Follow Up: Weeks Disposition/Orders: D/C to Home Scheduled PRN Hydrocodone/Apap 5-325 (Russell 5-325 Tablet) 1 Each Tablet, 1 TAB PO TID PRN for PAIN, #12 Prescribed by: AMANDO MANZANO MD on 01/05/19 1106 Last Taken: Unknown Dose on 02/01/19 0220 Last Action: HELD on 02/01/19 074 0 by RICHARDSON MONTEJO Patient Instructions Patient Instructions POD #1 s/p LAVH/bilateral salpingectomy Routine PO care has narcotic meds at home NO driving while on them keep scheduled follow up with me in one week gave zofran, prn for nausea/ flexaril for back spasms (not to be used in conjunction with narcotics) NPV x 6 weeks light/limited activity x 2 weeks call or return sooner for any other questions not limited to but including pain unrelieved with pain meds, increawsed or unexplained vaginal bleeding or T>100.4 RICHARDSON MONTEJO MD Feb 02, 2019 08:57
[2019-02-02] MEDS ORDERED: CYCLOBENZAPRINE 10 MG TABLET. PO PRN (10:45)
[2019-02-02] MEDS ORDERED: ONDANSETRON ODT 4 MG TAB.RAPDIS. PO PRN (10:45)
[2019-02-02 12:00] VITALS: BP 108/66
--- NOTE | 2019-02-03 11:07 | PATHOLOGY ---
[facility] Accession Number: [id number] . 01 Material submitted: . uterus - CERVIX, UTERUS, AND BILATERAL TUBES . 01 Clinical history: . Dysfunctional uterine bleeding . 02 Diagnosis: Uterus, cervix, and both fallopian tubes, hysterectomy and bilateral salpingectomy: - Moderate chronic cervicitis with reactive inflammatory changes. - Disordered proliferative phase endometrium without hyperplasia or malignancy. - Multifocal adinomyoses. - Fallopian tubes with congestion and with no other diagnostic changes. (SHA:tish; 02/03/2019) QMS/02/03/2019 . 02 Electronically signed: . Wilfred Ramirez MD, Pathologist NPI- [id number] . 01 Gross description: . The specimen is received in formalin, labeled "Dorsey, Delaney, cervix, uterus and bilateral tubes" and consists of a 71 g uterus with attached cervix measuring 7.8 x 4.8 x 3.7 cm. Attached are bilateral fimbriated fallopian tubes with the right (5.6 cm in length and up to 0.5 cm in diameter) and left (6.7 cm in length and up to 0.4 cm in diameter). Both tubes are removed with difficulty as essure coils are present. The uterine serosa is cross-brown, smooth, shiny. The slitlike 1.5 cm cervical os is surrounded by glistening pink-cross ectocervical mucosa. Anterior serosa and paracervical margin is inked black. It is bivalved revealing a corrugated endocervical canal measuring 2.9 cm in length. The endometrial cavity is linear measuring approximately 3.8 cm in length and 1.5 cm in diameter which is lined by a pink-cross and scarred endometrium measuring less than 0.1 cm. The myometrium is pink-cross measuring up to 1.7 cm with no nodules. . Both the right and left fallopian tubes are pink-purple, smooth, and shiny. Sectioning each reveals a well-defined lumen and no gross lesions. Core Driller sections are submitted as follows: . A1: Anterior cervix A2: Posterior cervix A3: Anterior endomyometrium A4: Posterior endomyometrium A5: Right fallopian tube A6: Left fallopian tube (SDY; 02/02/2019) SYU/SYU . 02 Pathologist provided ICD-10: N72, N85.9, N80.0 . 02 CPT . 032290 Specimen Comment: A courtesy copy of this report has been sent to Specimen Comment: [phone], . Specimen Comment: Report sent to / DR PENA Performed at: 01 [facility] [address] [facility] [address], [place] [id number] MD Calixto Pineda MD Phone: [phone] Performed at: 02 [facility] [address] [place], [place] [id number] MD Jon Calvert MD Phone: [phone]
== END 2019-02-02 13:50 | disposition home or self-care (01) ==
LOC: SURG 06:12 → 3 NORTH 09:30
PROVIDERS: ADMIT Obstetrics & Gynecology; ATTEND Obstetrics & Gynecology
DX: N92.0 Excessive and frequent menstruation with regular cycle (principal); N94.6 Dysmenorrhea, unspecified; D64.9 Anemia, unspecified; F41.9 Anxiety disorder, unspecified; N93.8 Other specified abnormal uterine and vaginal bleeding; A63.0 Anogenital (venereal) warts; Z82.49 Family history of ischemic heart disease and other diseases of the circulatory system; Z98.890 Other specified postprocedural states
CPT/HCPCS: 36415; 58550; 80048; 81025; 85014; 86850; 86900; 86901; 88307; 96374; 96375; G0378; G0379; J0330; J0690; J0780; J1100; J1200; J2001; J2405; J2704; J2710; J3010; J3490; J7030; J7120; Q0163; Q9968

== ENCOUNTER 2019-05-19 17:45 | Emergency (ER) | payer MEDICAID, OTHER ==
[~2019-05-19] VITALS: Ht 162.6 cm; Wt 63.5 kg
[~2019-05-19 17:45] MED LIST changes: -BUPIVACAINE-EPI 0.25%-1:200000 MPF 30 ML VIAL. ONE; -ESTROGENS, CONJ VAGINAL CREAM 30GM TUBE. ONE; -METHYLENE BLUE 1% 10 ML VIAL. ONE
[2019-05-19 18:15] VITALS: BP 112/73
[2019-05-19] MEDS ORDERED: AMOX500T PO (18:41)
[2019-05-19] MEDS ORDERED: HYDR-3164 PO (18:41)
--- NOTE | 2019-05-19 18:41 | PHYS DOC ---
Past Medical History Past Medical History: Other Additional Past Medical Histor: GASTRIC BYPASS (SRIDEVIJUSTICE APRN) Past Surgical History: Cholecystectomy, Gastric Bypass, Other Additional Past Surgical Histo: D&C,GASTRIC BIPASS (BHAVINJUSTICE POWERS APRN) Alcohol Use: None Drug Use: None (JUSTICE LAUREANO APRN) Adult General Chief Complaint Chief Complaint: DENTAL PROBLEM HPI HPI Patient is a 44 year old female who presents with upper and lower left gum dental pain described as moderate and throbbing for 2 days. Patient denies any fever or trismus. She states she has a dentist and may try to be seen as soon as possible. She states the dentist office is closed on Wednesday. (JUSTICE LAUREANO APRN) Review of Systems Review of Systems Constitutional: Denies fever or chills [] HENT: Reports left upper and lower gum dental pain. Denies nasal congestion or sore throat [] Musculoskeletal: Denies back pain or joint pain [] Integument: Denies rash or skin lesions [] Neurologic: Denies headache, focal weakness or sensory changes [] All other systems were reviewed and found to be within normal limits, except as documented in this note. (JUSTICE LAUREANO APRN) Current Medications Current Medications Current Medications Medications (Trade) Dose Ordered Sig/Sun Start Time Stop Time Status Last Admin Dose Admin Acetaminophen/ Hydrocodone Bitart (Lortab 5/325) 2 tab 1X ONCE 05/19/19 18:45 05/19/19 18:46 DC 05/19/19 18:59 2 TAB Amoxicillin (Amoxil) 500 mg 1X ONCE 05/19/19 18:45 05/19/19 18:46 DC 05/19/19 18:58 500 MG (JUAN FOX DO) Allergies Allergies Allergies Coded Allergies Type Severity Reaction Last Updated Verified ibuprofen Allergy Severe severe stomach pain 02/01/19 Yes (JUAN FOX DO) Physical Exam Physical Exam Constitutional: Well developed, well nourished, no acute distress, non-toxic appearance. [] HENT: Normocephalic, atraumatic, bilateral external ears normal, oropharynx moist, no oral exudates, nose normal. [] Patient is missing multiple teeth. On the left upper gum approximately tooth #14 is the source of pain. No obvious gum abscess noted. Skin: Warm, dry, no erythema, no rash. [] Back: No tenderness, no CVA tenderness. [] Extremities: No tenderness, no cyanosis, no clubbing, ROM intact, no edema. [] Neurologic: Alert and oriented X 3, normal motor function, normal sensory fun ction, no focal deficits noted. [] Psychologic: Affect normal, judgement normal, mood normal. [] (JUSTICE LAUREANO APRN) Current Patient Data Vital Signs Vital Signs Date Time Temp Pulse Resp B/P (MAP) Pulse Ox O2 Delivery O2 Flow Rate FiO2 05/19/19 18:15 99.2 98 18 112/73 (86) 97 Room Air 99.2 (JUAN FOX DO) EKG EKG [] (JUSTICE LAUREANO APRN) Radiology/Procedures Radiology/Procedures [] (JUSTICE LAUREANO APRN) Course & Med Decision Making Course & Med Decision Making Pertinent Labs and Imaging studies reviewed. (See chart for details) This is a 44-year-old female patient who presents to the ED today with dental pain. We discharged with amoxicillin. Follow-up with her dentist as soon as possible. (JUSTICE LAUREANO APRN) Dragon Disclaimer Dragon Disclaimer This electronic medical record was generated, in whole or in part, using a voice recognition dictation system. (JUSTICE LAUREANO APRN) Departure Departure Impression: Primary Impression: Dentalgia Disposition: HOME, SELF-CARE Condition: STABLE Referrals: JALEN PENA MD (PCP) follow up with your dentist as soon as possible Patient Instructions: Dental Pain, [id number] Additional Instructions: You were evaluated in the emergency room for dental pain. Please follow-up with your dentist as soon as possible. Scripts Hydrocodone/Apap 5-325 (NORCO 5-325 TABLET) 1 Each Tablet 1 TAB PO Q6HRS, #10 TAB Prov: JUSTICE LAUREANO APRN 05/19/19 Amoxicillin (AMOXICILLIN) 500 Mg Tablet 1 TAB PO BID, #20 TAB Prov: JUSTICE LAUREANO APRN 05/19/19 Attending Signature Attending Signature I have reviewed the PA/MANUFACTURING PRODUCTION MANAGER's note and plan of care. I was available for consultation as needed during the patient's visit in the emergency department. I agree with the clinical impression, plan, and disposition. (JUAN FOX DO) JUSTICE LAUREANO APRN May 19, 2019 18:41 JUAN FOX DO May 20, 2019 05:26
[2019-05-19] MEDS ORDERED: HYDROcodone/APAP 5/325MG 1 TAB TABLET PO ONE (18:45)
[2019-05-19] MEDS ORDERED: AMOXICILLIN 250 MG CAPSULE. PO ONE (18:45)
== END 2019-05-19 19:00 | disposition home or self-care (01) ==
LOC: ER 17:45
DX: K08.89 Other specified disorders of teeth and supporting structures (principal); Z90.49 Acquired absence of other specified parts of digestive tract; Z98.84 Bariatric surgery status; Z88.6 Allergy status to analgesic agent
CPT/HCPCS: 99283

== ENCOUNTER 2019-06-21 16:40 | Emergency (ER) | payer MEDICAID ==
[~2019-06-21] VITALS: Ht 160 cm; Wt 63.5 kg
[~2019-06-21 16:40] MED LIST changes: +AMOX500T PO
[2019-06-21 17:07] VITALS: BP 106/68
[2019-06-21] MEDS ORDERED: ALBU2.5V8 IH (17:28)
[2019-06-21] MEDS ORDERED: BENZ100C PO (17:28)
--- NOTE | 2019-06-21 17:28 | PHYS DOC ---
Past Medical History Past Medical History: Other Additional Past Medical Histor: GASTRIC BYPASS Past Surgical History: Cholecystectomy, Gastric Bypass, Other Additional Past Surgical Histo: D&C,GASTRIC BIPASS Alcohol Use: None Drug Use: None Adult General Chief Complaint Chief Complaint: COUGH HPI HPI Patient is a 44 year old female who presents to the emergency department with complaints of a cough for the last 2 days. Patient denies any fever, ear pain, sore throat, headache, shortness of breath, wheezing, chest pain, palpitations, nausea, vomiting, diarrhea, or abdominal pain. She reports nasal congestion and yellow sputum being produced with the cough. She currently reports her discomfort a 5 out of 10 on the pain scale she denies any alleviating factors. Patient states she has been taking Mucinex twice a day preceding as it wears off her symptoms return. All other ROS is neg unless otherwise noted in HPI. Review of Systems Review of Systems See Above Allergies Allergies Allergies Coded Allergies Type Severity Reaction Last Updated Verified ibuprofen Allergy Severe severe stomach pain 02/01/19 Yes Physical Exam Physical Exam See Above Constitutional: Well developed, well nourished, no acute distress, non-toxic appearance. [] HENT: Normocephalic, atraumatic, bilateral external ears normal, nose normal. [] Eyes: PERRLA, EOMI, conjunctiva normal, no discharge. [] Neck: Normal range of motion, no stridor. [] Cardiovascular:Heart rate regular rhythm Lungs & Thorax: Bilateral breath sounds clear to auscultation; coarse posterior bases [] Skin: Warm, dry, no erythema, no rash. [] Back: No tenderness Extremities: No cyanosis, ROM intact, no edema. [] Neurologic: Alert and oriented X 3, no focal deficits noted. [] Psychologic: Affect normal, judgement normal, mood normal. [] Current Patient Data Vital Signs Vital Signs Date Time Temp Pulse Resp B/P (MAP) Pulse Ox O2 Delivery O2 Flow Rate FiO2 06/21/19 17:07 99.1 85 18 106/68 (81) 100 Room Air 99.1 EKG EKG [] Radiology/Procedures Radiology/Procedures [] Course & Med Decision Making Course & Med Decision Making Pertinent Labs and Imaging studies reviewed. (See chart for details) [] Dragon Disclaimer Dragon Disclaimer This electronic medical record was generated, in whole or in part, using a voice recognition dictation system. Departure Departure Impression: Primary Impression: Bronchitis Disposition: 01 HOME, SELF-CARE Condition: STABLE Referrals: NO PCP (PCP) Patient Instructions: Acute Bronchitis, [id number] Additional Instructions: Fill prescription(s) and use as directed. Recommend use of a Cool mist humidifier in room at bedtime. Alternate Tylenol or ibuprofen as needed for pain/fever. Increase clear fluids. Avoid airway triggers such as smoke, fr agrance, dust, and pollen. Follow-up with your primary care doctor if symptoms persist, return to the ER if symptoms worsen. Scripts Benzonatate (TESSALON PERLE) 100 Mg Capsule 1 CAP PO TID PRN for COUGH for 7 Days, #21 CAP 0 Refills Prov: DANGELO DANIELLE APRN 06/21/19 Albuterol Sulfate (PROAIR HFA INHALER) 8.5 Gm Hfa.aer.ad 2 PUFF IH PRN Q4-6HRS PRN for wheezing for 21 Days, #1 INHALER 0 Refills Prov: DANGELO DANIELLE ECOLOGIST TECHNICIAN 06/21/19 DANGELO DANIELLE ECOLOGIST TECHNICIAN Jun 21, 2019 17:28
== END 2019-06-21 17:44 | disposition home or self-care (01) ==
LOC: ER 16:40
DX: J40 Bronchitis, not specified as acute or chronic (principal); Z88.8 Allergy status to other drugs, medicaments and biological substances
CPT/HCPCS: 99283

== ENCOUNTER 2019-09-12 11:19 | Emergency (ER) | payer MEDICAID ==
[~2019-09-12] VITALS: Ht 162.6 cm; Wt 63.6 kg
[~2019-09-12 11:19] MED LIST changes: +ALBU2.5V8 IH; +BENZ100C PO
[2019-09-12 11:51] VITALS: BP 135/60
[2019-09-12] MEDS ORDERED: HYDR-3164 PO ×2 (12:18→12:20)
[2019-09-12] MEDS ORDERED: AMOX875T PO ×2 (12:18→12:20)
--- NOTE | 2019-09-12 12:21 | PHYS DOC ---
Past Medical History Past Medical History: Other Additional Past Medical Histor: GASTRIC BYPASS (SRIDEVIJUSTICE BOYER) Past Surgical History: Cholecystectomy, Gastric Bypass, Other Additional Past Surgical Histo: D&C,GASTRIC BIPASS (SRIDEVIJUSTICE APRN) Smoking Status: Former Smoker Alcohol Use: None Drug Use: None (SRIDEVIJUSTICE BOYER) Adult General Chief Complaint Chief Complaint: DENTAL PROBLEM HPI HPI Patient is a 44 year old female who presents to the ED today complaining of 10 out of 10 bilateral upper gum dental pain for 2 days. Patient denies any fever. She reports she has an appointment with her own dentist on next. She reports she has history of gastric bypass and can not take NSAIDs. (JUSTICE LAUREANO APRN) Review of Systems Review of Systems Constitutional: Denies fever or chills [] HENT: Reports dental pain. Denies nasal congestion or sore throat [] Musculoskeletal: Denies back pain or joint pain [] Integument: Denies rash or skin lesions [] Neurologic: Denies headache, focal weakness or sensory changes [] All other systems were reviewed and found to be within normal limits, except as documented in this note. (TEJALRonnieJUSTICE BOYER) Allergies Allergies Allergies Coded Allergies Type Severity Reaction Last Updated Verified ibuprofen Allergy Severe severe stomach pain 02/01/19 Yes (JUAN FOX DO) Physical Exam Physical Exam Constitutional: Well developed, well nourished, no acute distress, non-toxic appearance. [] HENT: Normocephalic, atraumatic, bilateral external ears normal, oropharynx moist, no oral exudates, nose normal. [] Missing all the molars on the Left lower gum Approx. teeth #13 is broken and decayed Approx. Teeth # 3 is decayed. No obvious dental abscess noted. Skin: Warm, dry, no erythema, no rash. [] Back: No tenderness, no CVA tenderness. [] Extremities: No tenderness, no cyanosis, no clubbing, ROM intact, no edema. [] Neurologic: Alert and oriented X 3, normal motor function, normal sensory function, no focal deficits noted. [] Psychologic: Affect normal, judgement normal, mood normal. [] (JUSTICE LAUREANO APRN) Current Patient Data Vital Signs Vital Signs Date Time Temp Pulse Resp B/P (MAP) Pulse Ox O2 Delivery O2 Flow Rate FiO2 09/12/19 11:51 97.3 79 18 135/60 (85) 95 Room Air 97.3 (JUAN FOX DO) EKG EKG [] (JUSTICE LAUREANO APRN) Radiology/Procedures Radiology/Procedures [] (JUSTICE LAUREANO APRN) Course & Med Decision Making Course & Med Decision Making Pertinent Labs and Imaging studies reviewed. (See chart for details) This is a 44-year-old female patient with dental pain. She is history of bypasses cannot take any NSAIDs. We will send her home with prescription for amoxicillin and hydrocodone. F/u with dentist next week on (JUSTICE LAUREANO APRN) Dragon Disclaimer Dragon Disclaimer This electronic medical record was generated, in whole or in part, using a voice recognition dictation system. (JUSTICE LAUREANO APRN) Departure Departure Impression: Primary Impression: Dentalgia Disposition: HOME, SELF-CARE Condition: STABLE Referrals: CYNDI MCNULTY MD (PCP) follow up with your dentist next week as scheduled Patient Instructions: Dental Pain Additional Instructions: Please complete you antibiotics. Please see your dentist next week Scripts Hydrocodone/Apap 5-325 (NORCO 5-325 TABLET) 1 Each Tablet 1 TAB PO Q6HRS PRN for PAIN, #8 TAB Prov: JUSTICE LAUREANO APRN 09/12/19 Amoxicillin (AMOXICILLIN) 875 Mg Tablet 1 TAB PO BID, #20 TAB Prov: JUSTICE LAUREANO APRN 20 Amoxicillin (AMOXICILLIN) 875 Mg Tablet 1 TAB PO BID, #20 TAB Prov: JUSTICE LAUREANO APRN 20 Attending Signature Attending Signature I have reviewed the PA/LASTEX THREAD WINDER's note and plan of care. I was available for consultation as needed during the patient's visit in the emergency department. I agree with the clinical impression, plan, and disposition. (JUAN FOX DO) JUSTICE LAUREANO APRN Sep 12, 2019 12:21 JUAN FOX DO Sep 13, 2019 21:45
== END 2019-09-12 12:31 | disposition home or self-care (01) ==
LOC: ER 11:19
DX: K08.89 Other specified disorders of teeth and supporting structures (principal); Z87.891 Personal history of nicotine dependence; Z88.8 Allergy status to other drugs, medicaments and biological substances
CPT/HCPCS: 99283

== ENCOUNTER 2019-09-22 18:29 | Emergency (ER) | payer MEDICAID ==
[~2019-09-22] VITALS: Ht 162.6 cm; Wt 63.6 kg
[~2019-09-22 18:29] MED LIST changes: +AMOX875T PO
[2019-09-22] MEDS ORDERED: DEXAMETHASONE 4 MG TABLET PO STA (19:05)
--- NOTE | 2019-09-22 19:09 | PHYS DOC ---
Past Medical History Past Medical History: Other Additional Past Medical Histor: GASTRIC BYPASS Past Surgical History: Cholecystectomy, Gastric Bypass, Other Additional Past Surgical Histo: D&C,GASTRIC BIPASS Smoking Status: Former Smoker Alcohol Use: None Drug Use: None Adult General Chief Complaint Chief Complaint: DIZZY/LIGHT HEADED HPI HPI Patient is a 44 year old female who presents with dizziness, headache, nausea, body aches and runny nose this been ongoing for 5 days. She states that her daughter was diagnosed with flu B and got over it around a week ago. She denies cough, and is unsure whether fevers been running. Complete ROS were reviewed and found to be within normal limits, except as documented in the HPI Current Medications Current Medications Current Medications Medications (Trade) Dose Ordered Sig/Sun Start Time Stop Time Status Last Admin Dose Admin Dexamethasone (Decadron) 10 mg 1X STAT 09/22/19 19:05 09/22/19 19:08 DC 09/22/19 19:29 10 MG Ondansetron HCl (Zofran) 4 mg 1X ONCE 09/22/19 19:15 09/22/19 19:16 DC 09/22/19 19:29 4 MG Sodium Chloride 1,000 ml @ 1,000 mls/hr 1X ONCE 09/22/19 19:15 09/22/19 20:14 09/22/19 19:25 1,000 MLS/HR Allergies Allergies Allergies Coded Allergies Type Severity Reaction Last Updated Verified No Known Drug Allergies 09/22/19 No Physical Exam Physical Exam Constitutional: Well developed, well nourished, no acute distress, non-toxic appearance. [] HENT: Normocephalic, atraumatic, bilateral external ears normal, bilateral tympanic membranes are pearly sandhu, oropharynx moist, no oral exudates, nose turbinates are inflamed. Eyes: PERRLA, EOMI, conjunctiva normal, no discharge. [] Neck: Normal range of motion, no tenderness, supple, no stridor. [] Cardiovascular:Heart rate regular rhythm, no murmur [] Lungs & Thorax: Bilateral breath sounds clear to auscultation [] Abdomen: Bowel sounds normal, soft,mild tenderness, no masses, no pulsatile masses. [] Skin: Warm, dry, no erythema, no rash. [] Neurologic: Alert and oriented X 3, normal motor function, normal sensory function, no focal deficits noted. [] Psychologic: Affect normal, judgement normal, mood normal. [] Current Patient Data Vital Signs Vital Signs Date Time Temp Pulse Resp B/P (MAP) Pulse Ox O2 Delivery O2 Flow Rate FiO2 09/22/19 18:55 97.6 69 16 146/95 (112) 100 Room Air 97.6 Lab Values Laboratory Tests Test 09/22/19 18:55 09/22/19 19:04 09/22/19 19:23 Urine Collection Type Unknown Urine Color Yellow Urine Clarity Clear Urine pH 5.5 Urine Specific [place] >=1.030 Urine Protein Negative mg/dL (NEG-TRACE) Urine Glucose (UA) Negative mg/dL (NEG) Urine Ketones (Stick) Negative mg/dL (NEG) Urine Blood Negative (NEG) Urine Nitrite Negative (NEG) Urine Bilirubin Negative (NEG) Urine Urobilinogen Dipstick 0.2 mg/dL (0.2 mg/dL) Urine Leukocyte Esterase Negative (NEG) Urine RBC 0 /HPF (0-2) Urine WBC 0 /HPF (0-4) Urine Squamous Epithelial Cells Mod /LPF Urine Bacteria 0 /HPF (0-FEW) Urine Mucus Mod /LPF Influenza Type A Antigen Negative (NEGATIVE) Influenza Type B Antigen Negative (NEGATIVE) White Blood Count 5.4 x10^3/uL (4.0-11.0) Red Blood Count 4.27 x10^6/uL (3.50-5.40) Hemoglobin 10.5 g/dL (12.0-15.5) L Hematocrit 32.2 % (36.0-47.0) L Mean Corpuscular Volume 76 fL (79-100) L Mean Corpuscular Hemoglobin 25 pg (25-35) Mean Corpuscular Hemoglobin Concent 32 g/dL (31-37) Red Cell Distribution Width 17.5 % (11.5-14.5) H Platelet Count 257 x10^3/uL (140-400) Neutrophils (%) (Auto) 55 % (31-73) Lymphocytes (%) (Auto) 38 % (24-48) Monocytes (%) (Auto) 6 % (0-9) Eosinophils (%) (Auto) 1 % (0-3) Basophils (%) (Auto) 1 % (0-3) Neutrophils # (Auto) 3.0 x10^3/uL (1.8-7.7) Lymphocytes # (Auto) 2.1 x10^3/uL (1.0-4.8) Monocytes # (Auto) 0.3 x10^3/uL (0.0-1.1) Eosinophils # (Auto) 0.0 x10^3/uL (0.0-0.7) Basophils # (Auto) 0.0 x10^3/uL (0.0-0.2) Sodium Level 140 mmol/L (136-145) Potassium Level 3.9 mmol/L (3.5-5.1) Chloride Level 106 mmol/L (98-107) Carbon Dioxide Level 29 mmol/L (21-32) Anion Gap 5 (6-14) L Blood Urea Nitrogen 20 mg/dL (7-20) Creatinine 0.5 mg/dL (0.6-1.0) L Estimated GFR (Cockcroft-Gault) 133.4 BUN/Creatinine Ratio 40 (6-20) H Glucose Level 87 mg/dL (70-99) Calcium Level 8.3 mg/dL (8.5-10.1) L Magnesium Level 1.7 mg/dL (1.8-2.4) L Total Bilirubin 0.3 mg/dL (0.2-1.0) Aspartate Amino Transferase (AST) 25 U/L (15-37) Alanine Aminotransferase (ALT) 37 U/L (14-59) Alkaline Phosphatase 79 U/L (46-116) Total Protein 6.3 g/dL (6.4-8.2) L Albumin 3.2 g/dL (3.4-5.0) L Albumin/Globulin Ratio 1.0 (1.0-1.7) Laboratory Tests 09/22/19 19:23 Laboratory Tests 09/22/19 19:23 EKG EKG [] Radiology/Procedures Radiology/Procedures [] Course & Med Decision Making Course & Med Decision Making Pertinent Labs and Imaging studies reviewed. (See chart for details) I will get labs, flu swab, and give fluids and nausea medicine to the patient. Labs are unremarkable. FLU is negative. I suspect that the patient has the flu even though the flu test is negative. She has symptoms of influenza B and her daughter just recovered from influenza B. The flu test has a high rate of false negatives. Describes the patient nausea medicine and discharge home. We'll give instructions if it does not improve in several days to come back for reevaluation. Dragon Disclaimer Dragon Disclaimer This electronic medical record was generated, in whole or in part, using a voice recognition dictation system. Departure Departure Impression: Primary Impression: Viral syndrome Disposition: HOME, SELF-CARE Condition: STABLE Referrals: CYNDI MCNULTY MD (PCP) Patient Instructions: Viral Syndrome Additional Instructions: Thank you for visiting [facility]. We appreciate you trusting us with your care. If any additional problems come up don't hesitate to return to visit us. Please follow up with your primary care provider so they can plan additional care if needed and know about the problem that you had. If symptoms worsen come back to the Emergency Department. Any concerning symptoms that start such as chest pain, shortness of air, weakness or numbness on one side of the body, running high fevers or any other concerning symptoms return to the ER. Please fill your medications at any pharmacy and follow the prescription instructions. Please drink plenty of fluids. If unable to keep fluids down please return to ER. Please get Tylenol and Ibuprofen over the counter. Give each medication every 6 hours as directed by the medication labels. In order to utilize the peak of the medications, stagger the medications to where you are getting one of the m edications every 3 hours. For example if you give Ibuprofen at 3 PM, you then give Tylenol at 6 PM and Ibuprofen again at 9 PM, and then Tylenol at midnight. Please get Zyrtec over the counter and take per label instructions for runny nose. Scripts Ondansetron (ONDANSETRON ODT) 4 Mg Tab.rapdis 1 TAB PO PRN Q6-8HRS PRN for NAUSEA, #20 TAB Prov: JUAN URIBE APRN 09/22/19 JUAN URIBE APRN Sep 22, 2019 19:09
[2019-09-22] MEDS ORDERED: IV NORMAL SALINE 1000ML BAG 1,000 ML IV ONE (19:15)
[2019-09-22] MEDS ORDERED: ONDANSETRON PF 4 MG/2 ML VIAL. IV ONE (19:15)
[2019-09-22 19:16] LABS: BILIRUBIN,URINE NEGATIVE (NEG); CLARITY,URINE CLEAR; COLOR,URINE YELLOW; NITRITE,URINE NEGATIVE (NEG); PH,URINE 5.5; PROTEIN,URINE NEGATIVE (NEG-TRACE); UROBILINOGEN,URINE 0.2 mg/dL (0.2 mg/dL)
[2019-09-22 19:22] LABS: SQUAMOUS EPITHELIAL CELL,UR MOD /LPF
[2019-09-22 19:23] LABS: BACTERIA,URINE 0 /HPF (0-FEW); RBC,URINE 0 /HPF (0-2); WBC,URINE 0 /HPF (0-4)
[2019-09-22 19:33] LABS: BASO % 1 % (0-3); EOS % 1 % (0-3); HEMATOCRIT 32.2 % (36.0-47.0); HEMOGLOBIN 10.5 g/dL (12.0-15.5); LYMPH # 2.1 x10^3/uL (1.0-4.8); LYMPH % 38 % (24-48); MEAN CORPUSCULAR HEMOGLOBIN 25 pg (25-35); MEAN CORPUSCULAR HGB CONC 32 g/dL (31-37); MEAN CORPUSCULAR VOLUME 76 fL (79-100); MONO # 0.3 x10^3/uL (0.0-1.1); MONO % 6 % (0-9); NEUT % 55 % (31-73); PLATELET COUNT 257 x10^3/uL (140-400); RED BLOOD COUNT 4.27 x10^6/uL (3.50-5.40); RED CELL DISTRIBUTION WIDTH 17.5 % (11.5-14.5); WHITE BLOOD COUNT 5.4 x10^3/uL (4.0-11.0)
[2019-09-22 19:37] LABS: INFLUENZA A PATIENT NEGATIVE (NEGATIVE); INFLUENZA B PATIENT NEGATIVE (NEGATIVE)
[2019-09-22 19:41] LABS: CALCIUM 8.3 mg/dL (8.5-10.1); CREATININE 0.5 mg/dL (0.6-1.0); GFR 133.4; POTASSIUM 3.9 mmol/L (3.5-5.1)
[2019-09-22 19:46] LABS: ALBUMIN 3.2 g/dL (3.4-5.0); MAGNESIUM 1.7 mg/dL (1.8-2.4); TOTAL BILIRUBIN 0.3 mg/dL (0.2-1.0); TOTAL PROTEIN 6.3 g/dL (6.4-8.2)
[2019-09-22] MEDS ORDERED: ONDA4TAB12 PO (19:53)
[2019-09-22 19:59] VITALS: BP 134/79
== END 2019-09-22 20:03 | disposition home or self-care (01) ==
LOC: ER 18:29
DX: B34.9 Viral infection, unspecified (principal); R42 Dizziness and giddiness; Z87.891 Personal history of nicotine dependence
CPT/HCPCS: 36415; 80053; 81001; 83735; 85025; 87804; 96361; 96374; 99283; J2405; J7030; J8540

== ENCOUNTER → 2019-10-05 | Outpatient (CLI) | payer MEDICAID ==
[2019-09-22 19:59] VITALS: BP 134/79
[~2019-10-05] MED LIST changes: +ONDA4TAB12 PO
--- NOTE | 2019-10-06 11:47 | RAD ---
History: Routine screening. Technique: Bilateral digital mammographic routine views were obtained with 2-D and 3-D technique including use of CAD - computer aided detection. Comparison: None. This is a baseline.. Findings: Breast Tissue Density C : The breast tissue is heterogeneously dense. Scattered fibroglandular elements may obscure underlying pathology. There are no suspicious masses, microcalcifications or areas of architectural distortion. Impression: No suspicious findings. BI-RADS Category 1: Negative. Normal interval followup. Your mammogram demonstrates that you have dense breast tissue, which could hide abnormalities, and if you have other risk factors for breast cancer that have been identified, you might benefit from supplemental screening tests that may be suggested by your ordering physician. Dense breast tissue, in and of itself, is a relatively common condition. This information is not provided to cause undue concern, but rather to raise your awareness and to promote discussion with your physician regarding the presence of other risk factors, in addition to dense breast tissue. A report of your mammography results will be sent to you and your physician. You should contact your physician if you have any questions or concerns regarding this report. A mammogram does not have 100% sensitivity and therefore a negative imaging study should not delay further work up of a suspicious abnormality. The patient will receive a letter with the results in the mail. Patient information is entered into the reminder system with a target due date for the next screening mammogram. The patient will receive a reminder. "Our facility is accredited by the [employer] Mammography Program." BI-RADS 1 -- negative findings (within normal)
== END | disposition home or self-care (01) ==
LOC: MAMMO 11:06
PROVIDERS: ATTEND Family Medicine
DX: Z12.31 Encounter for screening mammogram for malignant neoplasm of breast (principal)
CPT/HCPCS: 77063; 77067

== ENCOUNTER 2020-04-19 08:29 | Emergency (ER) | payer MEDICAID ==
[~2020-04-19] VITALS: Ht 162.6 cm; Wt 65.0 kg
--- NOTE | 2020-04-19 09:18 | PHYS DOC ---
Past Medical History Additional Past Medical Histor: GASTRIC BYPASS Past Surgical History: Cholecystectomy, Gastric Bypass, Hysterectomy, Other Additional Past Surgical Histo: D&C,GASTRIC BIPASS Smoking Status: Former Smoker Alcohol Use: None Drug Use: None General Adult EDM: Chief Complaint: FLU LIKE SYMPTOMS HPI: HPI: 44-year-old female presents emergency department today with chills body aches and flulike symptoms over the past 8 to 10 hours. She has had some nausea with a couple episodes of vomiting. She denies any abdominal pain. She denies any exposure to COVID-19. Onset today. Location generalized. Duration constant. No relieving factors. Review of systems is negative for chest pain shortness of breath difficulty breathing nuchal rigidity headache. All other review of systems negative. 44-year-old female presenting with flulike symptoms with normal vital signs. COVID test sent. Otherwise blood work is unremarkable. She has an anemia that is chronic. We will discharge her to follow-up with her doctor in 1 to 2 days. She can take Tylenol or ibuprofen for her fever. If she develops severe pain she should return. She understands. The patient has been examined and was not found to have an emergency medical condition. The patient was then discharged home in stable condition to follow up with their primary care physician over the next 1-2 days. They were to return if their symptoms worsened or if they were concerned for any reason. They were also instructed to return to the emergency department if they were unable to get the recommended and appropriate follow-up. [id number] discharge instructions and return precautions were given. Patient's questions were answered to their satisfaction. Patient is comfortable with plan. Review of Systems: Review of Systems: Constitutional: Denies fever or chills. [] Eyes: Denies change in visual acuity. [] HENT: Denies nasal congestion or sore throat. [] Respiratory: Denies cough or shortness of breath. [] Cardiovascular: Denies chest pain or edema. [] GI: Denies abdominal pain, nausea, vomiting, bloody stools or diarrhea. [] : Denies dysuria. [] Musculoskeletal: Denies back pain or joint pain. [] Integument: Denies rash. [] Neurologic: Denies headache, focal weakness or sensory changes. [] Endocrine: Denies polyuria or polydipsia. [] Lymphatic: Denies swollen glands. [] Psychiatric: Denies depression or anxiety. [] Heart Score: Risk Factors: Risk Factors: DM, Current or recent (<one month) smoker, HTN, HLP, family history of CAD, obesity. Risk Scores: Score 0 - 3: 2.5% MACE over next 6 weeks - Discharge Home Score 4 - 6: 20.3% MACE over next 6 weeks - Admit for Clinical Observation Score 7 - 10: 72.7% MACE over next 6 weeks - Early Invasive Strategies Allergies: Allergies: Allergies Coded Allergies Type Severity Reaction Last Updated Verified No Known Drug Allergies 09/22/19 No Physical Exam: PE: Constitutional: Well developed, well nourished, no acute distress, non-toxic appearance. [] HENT: Normocephalic, atraumatic, bilateral external ears normal, oropharynx moist, no oral exudates, nose normal. [] Eyes: PERRLA, EOMI, conjunctiva normal, no discharge. [] Neck: Normal range of motion, no tenderness, supple, no stridor. [] Cardiovascular:Heart rate regular rhythm, no murmur [] Lungs & Thorax: Bilateral breath sounds clear to auscultation [] Abdomen: Bowel sounds normal, soft, no tenderness, no masses, no pulsatile masses. [] Skin: Warm, dry, no erythema, no rash. [] Back: No tenderness, no CVA tenderness. [] Extremities: No tenderness, no cyanosis, no clubbing, ROM intact, no edema. [] Neurologic: Alert and oriented X 3, normal motor function, normal sensory function, no focal deficits noted. [] Psychologic: Affect normal, judgement normal, mood normal. [] Current Patient Data: Vital Signs: Vital Signs Date Time Temp Pulse Resp B/P (MAP) Pulse Ox O2 Delivery O2 Flow Rate FiO2 04/19/20 08:35 98.5 71 18 118/69 (85) 97 Room Air 98.5 EKG: EKG: [] Radiology/Procedures: Radiology/Procedures: [] Course & Med Decision Making: Course & Med Decision Making Pertinent Labs and Imaging studies reviewed. (See chart for details) [] Dragon Disclaimer: Dragon Disclaimer: This electronic medical record was generated, in whole or in part, using a voice recognition dictation system. Departure Departure Impression: Primary Impression: Viral syndrome Disposition: HOME, SELF-CARE Condition: STABLE Referrals: CYNDI MCNULTY MD (PCP) Patient Instructions: Medical Screening Exam Justicifation of Admission Dx: Justifications for Admission: Justification of Admission Dx: N/A MARICRUZ PRIEST MD Apr 19, 2020 09:18
[2020-04-19 09:23] LABS: BASO % 0 % (0-3); EOS % 0 % (0-3); HEMATOCRIT 35.6 % (36.0-47.0); HEMOGLOBIN 11.1 g/dL (12.0-15.5); LYMPH # 0.9 x10^3/uL (1.0-4.8); LYMPH % 8 % (24-48); MEAN CORPUSCULAR HEMOGLOBIN 24 pg (25-35); MEAN CORPUSCULAR HGB CONC 31 g/dL (31-37); MEAN CORPUSCULAR VOLUME 76 fL (79-100); MONO # 0.6 x10^3/uL (0.0-1.1); MONO % 5 % (0-9); NEUT # 10.2 x10^3/uL (1.8-7.7); NEUT % 86 % (31-73); PLATELET COUNT 342 x10^3/uL (140-400); RED BLOOD COUNT 4.72 x10^6/uL (3.50-5.40); RED CELL DISTRIBUTION WIDTH 19.3 % (11.5-14.5); WHITE BLOOD COUNT 11.8 x10^3/uL (4.0-11.0)
[2020-04-19 09:30] LABS: CALCIUM 8.6 mg/dL (8.5-10.1); CREATININE 0.5 mg/dL (0.6-1.0); GFR 133.4; POTASSIUM 3.6 mmol/L (3.5-5.1)
[2020-04-19 09:32] LABS: PREG TEST PT QUAL NEGATIVE (NEG)
[2020-04-19 09:41] LABS: ALBUMIN 3.4 g/dL (3.4-5.0); ALBUMIN/GLOBULIN RATIO 0.9 (1.0-1.7); CLARITY,URINE HAZY; COLOR,URINE YELLOW; TOTAL BILIRUBIN 0.3 mg/dL (0.2-1.0); TOTAL PROTEIN 7.1 g/dL (6.4-8.2)
[2020-04-19 09:42] LABS: BACTERIA,URINE FEW /HPF (0-FEW); BILIRUBIN,URINE SMALL (NEG); NITRITE,URINE NEGATIVE (NEG); PH,URINE 5.5 (<5.0-8.0); PROTEIN,URINE 30 mg/dL (NEG-TRACE); RBC,URINE RARE /HPF (0-2); SQUAMOUS EPITHELIAL CELL,UR MANY /LPF; UROBILINOGEN,URINE 0.2 mg/dL (0.2 mg/dL); WBC,URINE OCC /HPF (0-4)
[2020-04-19 10:27] LABS: % BANDS 3 % (0-9); % LYMPHS 10 % (24-48); % MONOS 6 % (0-10); % SEGS 81 % (35-66); PLT ESTIMATE ADEQUATE (ADEQUATE)
[2020-04-19 11:40] VITALS: BP 103/63
[2020-04-19] MEDS ORDERED: ONDA4TAB7 PO (12:09)
== END 2020-04-19 12:15 | disposition home or self-care (01) ==
LOC: ER 08:29
DX: B34.9 Viral infection, unspecified (principal); Z20.828 Contact with and (suspected) exposure to other viral communicable diseases; Z87.891 Personal history of nicotine dependence
CPT/HCPCS: 36415; 80053; 81001; 83690; 84703; 85007; 85025; 99285; U0003

== ENCOUNTER 2020-10-08 08:07 | Emergency (ER) | payer MEDICAID ==
[~2020-10-08] VITALS: Ht 162.6 cm; Wt 64.5 kg
[~2020-10-08 08:07] MED LIST changes: +ONDA4TAB7 PO
[2020-10-08 08:12] VITALS: BP 144/84
[2020-10-08] MEDS ORDERED: BENZOCAINE ONE 20% MUCOSAL SPRAY. (09:10)
--- NOTE | 2020-10-08 09:11 | PHYS DOC ---
Past Medical History Past Medical History: No Pertinent History Additional Past Medical Histor: GASTRIC BYPASS Past Surgical History: Cholecystectomy, Gastric Bypass, Hysterectomy, Other Additional Past Surgical Histo: D&C,GASTRIC BIPASS, clavicle repair Smoking Status: Former Smoker Alcohol Use: None Drug Use: None General Adult EDM: Chief Complaint: DENTAL PROBLEM HPI: HPI: 45 yo F Review of Systems: Review of Systems: Constitutional: Denies fever or chills. [] Eyes: Denies change in visual acuity. [] HENT: Denies nasal congestion or sore throat. [] Respiratory: Denies cough or shortness of breath. [] Cardiovascular: Denies chest pain or edema. [] GI: Denies abdominal pain, nausea, vomiting, bloody stools or diarrhea. [] : Denies dysuria. [] Musculoskeletal: Denies back pain or joint pain. [] Integument: Denies rash. [] Neurologic: Denies headache, focal weakness or sensory changes. [] Endocrine: Denies polyuria or polydipsia. [] Lymphatic: Denies swollen glands. [] Psychiatric: Denies depression or anxiety. [] Heart Score: Risk Factors: Risk Factors: DM, Current or recent (<one month) smoker, HTN, HLP, family history of CAD, obesity. Risk Scores: Score 0 - 3: 2.5% MACE over next 6 weeks - Discharge Home Score 4 - 6: 20.3% MACE over next 6 weeks - Admit for Clinical Observation Score 7 - 10: 72.7% MACE over next 6 weeks - Early Invasive Strategies Allergies: Allergies: Allergies Coded Allergies Type Severity Reaction Last Updated Verified No Known Drug Allergies 10/08/20 No Physical Exam: PE: Constitutional: Well developed, well nourished, no acute distress, non-toxic appearance. [] HENT: Normocephalic, atraumatic, bilateral external ears normal, oropharynx moist, no oral exudates, nose normal. [] Eyes: PERRLA, EOMI, conjunctiva normal, no discharge. [] Neck: Normal range of motion, no tenderness, supple, no stridor. [] Cardiovascular:Heart rate regular rhythm, no murmur [] Lungs & Thorax: Bilateral breath sounds clear to auscultation [] Abdomen: Bowel sounds normal, soft, no tenderness, no masses, no pulsatile masses. [] Skin: Warm, dry, no erythema, no rash. [] Back: No tenderness, no CVA tenderness. [] Extremities: No tenderness, no cyanosis, no clubbing, ROM intact, no edema. [] Neurologic: Alert and oriented X 3, normal motor function, normal sensory function, no focal deficits noted. [] Psychologic: Affect normal, judgement normal, mood normal. [] Current Patient Data: Vital Signs: Vital Signs Date Time Temp Pulse Resp B/P (MAP) Pulse Ox O2 Delivery O2 Flow Rate FiO2 10/08/20 08:12 98.7 75 18 144/84 (104) 96 Room Air 98.7 EKG: EKG: [] Radiology/Procedures: Radiology/Procedures: [] Course & Med Decision Making: Course & Med Decision Making Pertinent Labs and Imaging studies reviewed. (See chart for details) Will discharge home with strict ED return precautions were given for []. Encouraged urgent outpatient follow-up with PMD and urgent dental clinic referral. Life-threatening processes were considered but are low suspicion at this time, given history, physical exam and ED workup. Pt was educated on all prescription medications and adverse effects. All patient's questions were answered and pt was stable at time of discharge. Life/limb-threatening differential includes but is not limited to, Kuldeep's angina, infection (periodontal or peritonsillar abscess, retropharyngeal abscess, Vincents angina, ANUG, pharyngeal/customs examiner/buccal space infection), trauma or fracture, dental fracture/subluxation/avulsion, dental bleeding or hemorrhage/DIC, pulpitis, alveolar osteitis or neoplasm I spoken with the patient and her caregivers. I explained the patient's condition, diagnoses and treatment plan based on the information available to me at this time. I have answered the patient and her caregiver's questions and addressed any concerns. The patient and her caregivers have a good understanding of patient's diagnosis, condition and treatment plan as can be expected at this point. Vital signs have been stable. Patient's condition is stable and appropriate for discharge from the emergency department. Patient will pursue further outpatient evaluation with primary care physician or other designated or consulting physician as outlined in the discharge instructions. The patient and/or caregivers are agreeable to this plan of care and follow-up instructions have been explained in detail. The patient and/or caregivers have received these instructions in written form and have expressed an understanding of the discharge instructions. The patient and/or caregivers are aware that any significant change of condition or worsening of symptoms should prompt immediate return to this or the closest emergency department or call to [phone]. Anabella Disclaimer: Anabella Disclaimer: This electronic medical record was generated, in whole or in part, using a voice recognition dictation system. Departure Departure Impression: Primary Impression: Pain due to dental caries Additional Impression: Chronic dental pain Disposition: 01 DC HOME SELF CARE/HOMELESS Condition: STABLE Referrals: CYNDI MCNULTY MD (PCP) in 1 week for re-evaluation Patient Instructions: Dental Abscess, Dental Caries Additional Instructions: EMERGENCY DEPARTMENT GENERAL DISCHARGE INSTRUCTIONS Thank you for coming to [facility] Emergency Department (ED) today and trusting us with you care. We trust that you had a positive experience in our Emergency Department. If you wish to speak to the department management, you may call the Director at [phone]. YOUR FOLLOW UP INSTRUCTIONS ARE FOLLOWS: 1. Do you have a private Doctor? If you do not have a private doctor, please ask for a resource list of physicians or clinics that may be able to assist you with follow up care. 2. The Emergency Physicain has interpreted your x-rays. The X-Ray specialist will also review them. If there is a change in the findings, you will be notified in 48 hours when at all possible. 3. A lab test or culture has been done, your results will be reviewed and you will be notified if you need a change in treatment. ADDITIONAL INSTRUCTIONS AND INFORMATION: 1. Your care today has been supervised by a physician who is specially trained in emergency care. Many problems require more than one evaluation for a complete diagnosis and treatment. We recommend that you schedule your follow up appointment as recommended to ensure complete treatment of you illness or injury. If you are unable to obtain follow up care and continue to have a problem, or if your condition worsens, we recommend that you return to the ED. 2. We are not able to safely determine your condition over the phone nor are we able to give sound medical advice over the phone. For these safety reasons, if you call for medical advice we will ask you to come to the ED for further evaluation. 3. If you have any questions regarding these discharge instructions please call the ED at [phone]. SAFETY INFORMATION: In the interest of safety, wellness, and injury prevention; we encourage you to wear your sealbelt, if you smoke; quite smoking, and we encourage family to use a protective helmet for bicycling and other sporting events that present an increased risk for head injury. IF YOUR SYMPTOMS WORSEN OR NEW SYMPTOMS DEVELOP, OR YOU HAVE CONCERNS ABOUT YOUR CONDITION; OR IF YOUR CONDITION WORSENS WHILE YOU ARE WAITING FOR YOUR FOLLOW UP APPOINTMENT; EITHER CONTACT YOUR PRIMARY CARE DOCTOR, THE PHYSICIAN WHOSE NAME AND NUMBER YOU WERE GIVEN, OR RETURN TO THE ED IMMEDIATELY. Scripts Penicillin V Potassium (PENICILLIN V POTASSIUM) 500 Mg Tablet 2 TAB PO Q12HR for 7 Days, #28 TAB Prov: JORI NAJERA DO 10/08/20 JORI NAJERA DO Oct 08, 2020 09:11
[2020-10-08] MEDS ORDERED: BENZOCAINE ONE 20% MUCOSAL SPRAY. MM (09:15)
[2020-10-08] MEDS ORDERED: PENI500T PO (09:51)
== END 2020-10-08 09:48 | disposition home or self-care (01) ==
LOC: ER 08:07
DX: K02.9 Dental caries, unspecified (principal); K08.89 Other specified disorders of teeth and supporting structures; G89.29 Other chronic pain; Z87.891 Personal history of nicotine dependence; Z95.1 Presence of aortocoronary bypass graft
CPT/HCPCS: 99283

== ENCOUNTER → 2020-10-15 | Outpatient (CLI) | payer MEDICAID ==
[2020-10-08 08:12] VITALS: BP 144/84
[~2020-10-15] MED LIST changes: +PENI500T PO
[2020-10-15 14:06] LABS: BASO % 0 % (0-3); EOS % 1 % (0-3); HEMATOCRIT 34.7 % (36.0-47.0); HEMOGLOBIN 10.7 g/dL (12.0-15.5); LYMPH # 2.3 x10^3/uL (1.0-4.8); LYMPH % 36 % (24-48); MEAN CORPUSCULAR HEMOGLOBIN 24 pg (25-35); MEAN CORPUSCULAR HGB CONC 31 g/dL (31-37); MEAN CORPUSCULAR VOLUME 77 fL (79-100); MONO # 0.5 x10^3/uL (0.0-1.1); MONO % 8 % (0-9); NEUT # 3.6 x10^3/uL (1.8-7.7); NEUT % 55 % (31-73); PLATELET COUNT 285 x10^3/uL (140-400); RED CELL DISTRIBUTION WIDTH 19.1 % (11.5-14.5); WHITE BLOOD COUNT 6.4 x10^3/uL (4.0-11.0)
== END ==
LOC: ONCLAB 12:43
PROVIDERS: ATTEND Internal Medicine Hematology & Oncology
DX: D64.9 Anemia, unspecified (principal)
CPT/HCPCS: 36415; 82607; 82728; 82746; 83540; 83550; 83921; 85025; 85045

== ENCOUNTER → 2020-11-19 | Outpatient (CLI) | payer MEDICAID ==
[2020-11-19 14:56] LABS: BASO % 0 % (0-3); EOS % 0 % (0-3); HEMATOCRIT 36.7 % (36.0-47.0); HEMOGLOBIN 11.7 g/dL (12.0-15.5); LYMPH # 1.5 x10^3/uL (1.0-4.8); LYMPH % 32 % (24-48); MEAN CORPUSCULAR HEMOGLOBIN 27 pg (25-35); MEAN CORPUSCULAR HGB CONC 32 g/dL (31-37); MEAN CORPUSCULAR VOLUME 84 fL (79-100); MONO # 0.3 x10^3/uL (0.0-1.1); MONO % 7 % (0-9); NEUT # 2.8 x10^3/uL (1.8-7.7); NEUT % 61 % (31-73); PLATELET COUNT 291 x10^3/uL (140-400); RED BLOOD COUNT 4.37 x10^6/uL (3.50-5.40); RED CELL DISTRIBUTION WIDTH 23.9 % (11.5-14.5); WHITE BLOOD COUNT 4.6 x10^3/uL (4.0-11.0)
[2020-11-19 16:07] LABS: PLT ESTIMATE ADEQUATE (ADEQUATE)
[2020-11-19 16:09] LABS: ANISOCYTOSIS MOD; CALCIUM 8.4 mg/dL (8.5-10.1); CREATININE 0.6 mg/dL (0.6-1.0); GFR 107.6
[2020-11-19 16:26] LABS: ALBUMIN 3.8 g/dL (3.4-5.0); DIRECT BILIRUBIN 0.1 mg/dL (0.0-0.2); TOTAL BILIRUBIN 0.3 mg/dL (0.2-1.0); TOTAL PROTEIN 6.8 g/dL (6.4-8.2)
== END ==
LOC: ONCLAB 14:17
PROVIDERS: ATTEND Physician Assistant
DX: D50.0 Iron deficiency anemia secondary to blood loss (chronic) (principal)
CPT/HCPCS: 36415; 80048; 80076; 82728; 83540; 83550; 85025

== ENCOUNTER → 2021-01-15 | Outpatient (CLI) | payer MEDICAID ==
[2021-01-15 15:20] LABS: BASO % 1 % (0-3); EOS # 0.1 x10^3/uL (0.0-0.7); EOS % 1 % (0-3); HEMATOCRIT 43.1 % (36.0-47.0); HEMOGLOBIN 14.1 g/dL (12.0-15.5); LYMPH # 1.8 x10^3/uL (1.0-4.8); LYMPH % 33 % (24-48); MEAN CORPUSCULAR HEMOGLOBIN 29 pg (25-35); MEAN CORPUSCULAR HGB CONC 33 g/dL (31-37); MEAN CORPUSCULAR VOLUME 90 fL (79-100); MONO # 0.4 x10^3/uL (0.0-1.1); MONO % 7 % (0-9); NEUT # 3.2 x10^3/uL (1.8-7.7); NEUT % 59 % (31-73); PLATELET COUNT 266 x10^3/uL (140-400); RED BLOOD COUNT 4.81 x10^6/uL (3.50-5.40); RED CELL DISTRIBUTION WIDTH 17.8 % (11.5-14.5); WHITE BLOOD COUNT 5.4 x10^3/uL (4.0-11.0)
== END ==
LOC: ONCLAB 14:31
PROVIDERS: ATTEND Physician Assistant
DX: D50.0 Iron deficiency anemia secondary to blood loss (chronic) (principal); D64.9 Anemia, unspecified
CPT/HCPCS: 36415; 82728; 83540; 83550; 85025

== ENCOUNTER → 2021-03-18 | Outpatient (CLI) | payer MEDICAID ==
[2021-03-18 15:28] LABS: BASO % 1 % (0-3); EOS # 0.1 x10^3/uL (0.0-0.7); EOS % 1 % (0-3); HEMOGLOBIN 13.2 g/dL (12.0-15.5); LYMPH # 1.7 x10^3/uL (1.0-4.8); LYMPH % 34 % (24-48); MEAN CORPUSCULAR HEMOGLOBIN 30 pg (25-35); MEAN CORPUSCULAR HGB CONC 33 g/dL (31-37); MEAN CORPUSCULAR VOLUME 91 fL (79-100); MONO # 0.4 x10^3/uL (0.0-1.1); MONO % 8 % (0-9); NEUT # 2.8 x10^3/uL (1.8-7.7); NEUT % 57 % (31-73); PLATELET COUNT 242 x10^3/uL (140-400); RED BLOOD COUNT 4.41 x10^6/uL (3.50-5.40); RED CELL DISTRIBUTION WIDTH 13.3 % (11.5-14.5); WHITE BLOOD COUNT 4.9 x10^3/uL (4.0-11.0)
== END ==
LOC: ONCLAB 15:09
PROVIDERS: ATTEND Physician Assistant
DX: D50.0 Iron deficiency anemia secondary to blood loss (chronic) (principal)
CPT/HCPCS: 36415; 83540; 83550; 85025

== ENCOUNTER 2021-05-08 06:24 | Emergency (ER) | payer MEDICAID ==
[~2021-05-08] VITALS: Ht 162.6 cm; Wt 78.6 kg
--- NOTE | 2021-05-08 07:01 | ED.ADGEN ---
Past Medical History Past Medical History: No Pertinent History Additional Past Medical Histor: GASTRIC BYPASS Past Surgical History: No Surgical History Additional Past Surgical Histo: D&C,GASTRIC BIPASS, clavicle repair Smoking Status: Never Smoker Alcohol Use: None Drug Use: None Social History Narrative: fentanyl General Adult EDM: Chief Complaint: OVERDOSE HPI: HPI: Patient is a 45-year-old female who arrives via EMS after a reported accidental overdose of fentanyl. Patient reportedly was given a tablet by a friend at ap proximately 530 this morning. Patient believes this may have been fentanyl. The patient experienced difficulty breathing and paramedics were contacted. Upon arrival the paramedics observed the patient to be in respiratory distress with oxygen saturations in the 50% range. The patient was administered Narcan and had a very quick recovery. Since that time the patient has been awake and alert. She maintains very strongly that she is not suicidal. She denies medical complaint otherwise. She is awake, alert and currently in no acute distress. She is breathing normally. Review of Systems: Review of Systems: Constitutional: Denies fever or chills. [] Eyes: Denies change in visual acuity. [] HENT: Denies nasal congestion or sore throat. [] Respiratory: Reports difficulty breathing. Denies cough. [] Cardiovascular: Denies chest pain or edema. [] GI: Denies abdominal pain, nausea, vomiting, bloody stools or diarrhea. [] : Denies dysuria. [] Musculoskeletal: Denies back pain or joint pain. [] Integument: Denies rash. [] Neurologic: Denies headache, focal weakness or sensory changes. [] Endocrine: Denies polyuria or polydipsia. [] Lymphatic: Denies swollen glands. [] Psychiatric: Denies depression or anxiety. [] Family History: Family History: Noncontributory Current Medications: Current Medications Medications (Trade) Dose Ordered Sig/Sun Start Time Stop Time Status Last Admin Dose Admin Ondansetron HCl (Zofran) 4 mg 1X ONCE 05/08/21 11:30 05/08/21 11:31 UNV Sodium Chloride 1,000 ml @ 1,000 mls/hr 1X ONCE 05/08/21 07:15 05/08/21 08:14 DC 05/08/21 07:08 1,000 MLS/HR Allergies: Allergies: Allergies Coded Allergies Type Severity Reaction Last Updated Verified No Known Drug Allergies 3/16/21 No Physical Exam: PE: Constitutional: Anxious. Well developed, well nourished, non-toxic appearance. [] HENT: Normocephalic, atraumatic, bilateral external ears normal, oropharynx moist, no oral exudates, nose normal. [] Eyes: PERRLA, EOMI, conjunctiva normal, no discharge. [] Neck: Normal range of motion, no tenderness, supple, no stridor. [] Cardiovascular:Heart rate regular rhythm, no murmur [] Lungs & Thorax: Bilateral breath sounds clear to auscultation [] Abdomen: Bowel sounds normal, soft, no tenderness, no masses, no pulsatile masses. [] Skin: Warm, dry, no erythema, no rash. [] Back: No tenderness, no CVA tenderness. [] Extremities: No tenderness, no cyanosis, no clubbing, ROM intact, no edema. [] Neurologic: Alert and oriented X 3, normal motor function, normal sensory function, no focal deficits noted. [] Psychologic: Affect normal, judgement normal, mood normal. [] Current Patient Data: Labs: Laboratory Tests Test 05/08/21 07:35 White Blood Count 12.7 x10^3/uL (4.0-11.0) H Red Blood Count 4.45 x10^6/uL (3.50-5.40) Hemoglobin 13.8 g/dL (12.0-15.5) Hematocrit 40.2 % (36.0-47.0) Mean Corpuscular Volume 90 fL (79-100) Mean Corpuscular Hemoglobin 31 pg (25-35) Mean Corpuscular Hemoglobin Concent 34 g/dL (31-37) Red Cell Distribution Width 14.1 % (11.5-14.5) Platelet Count 324 x10^3/uL (140-400) Neutrophils (%) (Auto) 87 % (31-73) H Lymphocytes (%) (Auto) 7 % (24-48) L Monocytes (%) (Auto) 5 % (0-9) Eosinophils (%) (Auto) 0 % (0-3) Basophils (%) (Auto) 0 % (0-3) Neutrophils # (Auto) 11.1 x10^3/uL (1.8-7.7) H Lymphocytes # (Auto) 0.9 x10^3/uL (1.0-4.8) L Monocytes # (Auto) 0.7 x10^3/uL (0.0-1.1) Eosinophils # (Auto) 0.0 x10^3/uL (0.0-0.7) Basophils # (Auto) 0.0 x10^3/uL (0.0-0.2) Maternal Serum HCG Beta Subunit 1 mIU/mL (0-5) Sodium Level 142 mmol/L (136-145) Potassium Level 3.6 mmol/L (3.5-5.1) Chloride Level 104 mmol/L (98-107) Carbon Dioxide Level 26 mmol/L (21-32) Anion Gap 12 (6-14) Blood Urea Nitrogen 15 mg/dL (7-20) Creatinine 0.7 mg/dL (0.6-1.0) Estimated GFR (Cockcroft-Gault) 90.1 BUN/Creatinine Ratio 21 (6-20) H Glucose Level 116 mg/dL (70-99) H Calcium Level 8.0 mg/dL (8.5-10.1) L Total Bilirubin 0.3 mg/dL (0.2-1.0) Aspartate Amino Transferase (AST) 33 U/L (15-37) Alanine Aminotransferase (ALT) 35 U/L (14-59) Alkaline Phosphatase 89 U/L (46-116) Total Protein 7.0 g/dL (6.4-8.2) Albumin 3.7 g/dL (3.4-5.0) Albumin/Globulin Ratio 1.1 (1.0-1.7) Laboratory Tests 05/08/21 07:35 Laboratory Tests 05/08/21 07:35 Vital Signs: Vital Signs Date Time Temp Pulse Resp B/P (MAP) Pulse Ox O2 Delivery O2 Flow Rate FiO2 05/08/21 11:11 96 98 05/08/21 06:42 96.1 16 149/90 (109) Room Air 98.0 96.1 EKG: EKG: [] EKG was obtained at 6:35 AM and revealed a normal sinus rhythm with a ventricular rate of 9 9 bpm. There are no acute ST/T wave changes present. T his is an otherwise normal EKG. Heart Score: C/O Chest Pain: No Risk Factors: Risk Factors: DM, Current or recent (<one month) smoker, HTN, HLP, family history of CAD, obesity. Risk Scores: Score 0 - 3: 2.5% MACE over next 6 weeks - Discharge Home Score 4 - 6: 20.3% MACE over next 6 weeks - Admit for Clinical Observation Score 7 - 10: 72.7% MACE over next 6 weeks - Early Invasive Strategies Radiology/Procedures: Radiology/Procedures: [] Course & Med Decision Making: Course & Med Decision Making Pertinent Labs and Imaging studies reviewed. (See chart for details) The patient remains awake, alert and in no acute distress. Patient has not req uired any additional Narcan since she was administered this by transporting medics. Furthermore it was advised by poison control the patient be observed for 6 hours postingestion. The patient has not had any problems maintaining her airway or with breathing since her arrival. She does report of some slight nausea however she has not vomited since being initially evaluated. She denies pain of any kind. I spoke with her in great detail about not taking medications that are not prescribed to her. Should she have any change in her condition of advised that she return. The patient understands and has agreed to do so. She is nontoxic-appearing and stable for discharge. She will be transported home by her daughter. Coydante Disclaimer: Anabella Disclaimer: This electronic medical record was generated, in whole or in part, using a voice recognition dictation system. Departure Departure Impression: Primary Impression: Accidental opiate poisoning Disposition: HOME / SELF CARE / HOMELESS Condition: STABLE Referrals: CYNDI MCNULTY MD (PCP) Patient Instructions: Overdose, Accidental Scripts Ondansetron Hcl (ZOFRAN) 4 Mg Tablet 1 TAB PO Q6HRS, #20 TAB Prov: CHUCK FREEMAN DO 05/08/21 CHUCK FREEMAN DO May 08, 2021 07:01
[2021-05-08] MEDS ORDERED: ONDANSETRON PF 4 MG/2 ML VIAL. IVP ONE ×2 (07:15→11:30)
[2021-05-08] MEDS ORDERED: IV NORMAL SALINE 1000ML BAG 1,000 ML IV ONE (07:15)
[2021-05-08 07:58] LABS: CREATININE 0.7 mg/dL (0.6-1.0); GFR 90.1; POTASSIUM 3.6 mmol/L (3.5-5.1)
[2021-05-08 08:04] LABS: ALBUMIN 3.7 g/dL (3.4-5.0); ALBUMIN/GLOBULIN RATIO 1.1 (1.0-1.7); TOTAL BILIRUBIN 0.3 mg/dL (0.2-1.0)
[2021-05-08 08:18] LABS: BASO % 0 % (0-3); EOS % 0 % (0-3); HEMATOCRIT 40.2 % (36.0-47.0); HEMOGLOBIN 13.8 g/dL (12.0-15.5); LYMPH # 0.9 x10^3/uL (1.0-4.8); LYMPH % 7 % (24-48); MEAN CORPUSCULAR HEMOGLOBIN 31 pg (25-35); MEAN CORPUSCULAR HGB CONC 34 g/dL (31-37); MEAN CORPUSCULAR VOLUME 90 fL (79-100); MONO # 0.7 x10^3/uL (0.0-1.1); MONO % 5 % (0-9); NEUT # 11.1 x10^3/uL (1.8-7.7); NEUT % 87 % (31-73); PLATELET COUNT 324 x10^3/uL (140-400); RED BLOOD COUNT 4.45 x10^6/uL (3.50-5.40); RED CELL DISTRIBUTION WIDTH 14.1 % (11.5-14.5); WHITE BLOOD COUNT 12.7 x10^3/uL (4.0-11.0)
[2021-05-08] MEDS ORDERED: ONDA4TAB7 PO (11:24)
[2021-05-08 11:50] VITALS: BP 128/69
== END 2021-05-08 11:55 | disposition home or self-care (01) ==
LOC: ER 06:24
DX: T40.411A Poisoning by fentanyl or fentanyl analogs, accidental (unintentional), initial encounter (principal); R06.03 Acute respiratory distress; Y92.89 Other specified places as the place of occurrence of the external cause
CPT/HCPCS: 36415; 80053; 84702; 85025; 93005; 96361; 96374; 99285; J2405; J7030

== ENCOUNTER → 2021-06-23 | Outpatient (CLI) | payer MEDICAID ==
[~2021-06-23] MED LIST changes: +CYCL10TA19 PO; -CYCL10TA2 PO
[2021-06-23 15:44] LABS: BASO % 1 % (0-3); EOS % 1 % (0-3); LYMPH # 1.4 x10^3/uL (1.0-4.8); LYMPH % 30 % (24-48); MEAN CORPUSCULAR HEMOGLOBIN 30 pg (25-35); MEAN CORPUSCULAR HGB CONC 33 g/dL (31-37); MEAN CORPUSCULAR VOLUME 92 fL (79-100); MONO # 0.4 x10^3/uL (0.0-1.1); MONO % 8 % (0-9); NEUT # 2.9 x10^3/uL (1.8-7.7); NEUT % 61 % (31-73); PLATELET COUNT 289 x10^3/uL (140-400); RED BLOOD COUNT 4.67 x10^6/uL (3.50-5.40); RED CELL DISTRIBUTION WIDTH 13.1 % (11.5-14.5); WHITE BLOOD COUNT 4.7 x10^3/uL (4.0-11.0)
[2021-06-23 15:55] LABS: CALCIUM 8.3 mg/dL (8.5-10.1); CREATININE 0.6 mg/dL (0.6-1.0); GFR 107.2; POTASSIUM 4.8 mmol/L (3.5-5.1)
[2021-06-23 16:15] LABS: ALBUMIN 3.2 g/dL (3.4-5.0); TOTAL BILIRUBIN 0.2 mg/dL (0.2-1.0); TOTAL PROTEIN 6.3 g/dL (6.4-8.2)
== END ==
LOC: ONCLAB 15:18
PROVIDERS: ATTEND Internal Medicine Hematology & Oncology
DX: D50.0 Iron deficiency anemia secondary to blood loss (chronic) (principal)
CPT/HCPCS: 36415; 80053; 82306; 82607; 82728; 82746; 83540; 83550; 83921; 85025

== ENCOUNTER 2021-10-17 04:08 | Emergency (ER) | payer MEDICAID ==
[~2021-10-17] VITALS: Ht 162.6 cm; Wt 79.5 kg
[2021-10-17 04:55] LABS: BASO % 0 % (0-3); EOS # 0.1 x10^3/uL (0.0-0.7); EOS % 0 % (0-3); HEMATOCRIT 45.7 % (36.0-47.0); HEMOGLOBIN 14.9 g/dL (12.0-15.5); LYMPH # 2.3 x10^3/uL (1.0-4.8); LYMPH % 20 % (24-48); MEAN CORPUSCULAR HEMOGLOBIN 30 pg (25-35); MEAN CORPUSCULAR HGB CONC 33 g/dL (31-37); MEAN CORPUSCULAR VOLUME 92 fL (79-100); MONO # 0.5 x10^3/uL (0.0-1.1); MONO % 5 % (0-9); NEUT % 75 % (31-73); PLATELET COUNT 334 x10^3/uL (140-400); RED BLOOD COUNT 4.97 x10^6/uL (3.50-5.40); RED CELL DISTRIBUTION WIDTH 14.9 % (11.5-14.5)
[2021-10-17] MEDS ORDERED: ONDANSETRON PF 4 MG/2 ML VIAL. IVP ONE (05:00)
[2021-10-17] MEDS ORDERED: fentaNYL PF VIAL 100 MCG/2 ML VIAL IV PRN (05:00)
[2021-10-17] MEDS ORDERED: IV NORMAL SALINE 1000ML BAG 1,000 ML IV SCH (05:00)
[2021-10-17 05:03] LABS: CALCIUM 8.7 mg/dL (8.5-10.1); CREATININE 0.8 mg/dL (0.6-1.0); GFR 76.9; POTASSIUM 3.7 mmol/L (3.5-5.1)
[2021-10-17 05:06] LABS: PREG TEST PT QUAL NEGATIVE (NEG)
--- NOTE | 2021-10-17 05:08 | PHYS DOC ---
Past Medical History Past Medical History: No Pertinent History Additional Past Medical Histor: GASTRIC BYPASS Past Surgical History: Cholecystectomy, Gastric Bypass, Hysterectomy Additional Past Surgical Histo: D&C, Clavicle surgery, Smoking Status: Never Smoker Alcohol Use: None Drug Use: None General Adult EDM: Chief Complaint: RECTAL BLEED HPI: HPI: Patient is a 46 year old female who presents with complaint of abdominal pain and bloody stools. Patient states that 2 days ago she had intermittent abdominal cramping and diarrhea but notes that this resolved on its own. She states however starting last night at 1900 her pain symptoms came back. Patient had a nonbloody bowel movement at time of cramping abdominal pain. Starting at approximately 2030 however she started noticing passage of blood in stool. States that the blood has been bright red and has noticed passage of clots with her bowel movements. Denies history of similar symptoms. Notes previous history of peptic ulcer disease. Has not had any vomiting, fever, chest pain, or shortness of breath. Rates pain as 10 out of 10 and states it is across her lower abdomen. Not currently on any blood thinners. Review of Systems: Review of Systems: Constitutional: Denies fever or chills. [] Eyes: Denies change in visual acuity. [] HENT: Denies nasal congestion or sore throat. [] Respiratory: Denies cough or shortness of breath. [] Cardiovascular: Denies chest pain or edema. [] GI: Abdominal pain, nausea, diarrhea, bloody stools. [] : Denies dysuria. [] Musculoskeletal: Denies back pain or joint pain. [] Integument: Denies rash. [] Neurologic: Denies headache, focal weakness or sensory changes. [] Endocrine: Denies polyuria or polydipsia. [] Heart Score: C/O Chest Pain: No Risk Factors: Risk Factors: DM, Current or recent (<one month) smoker, HTN, HLP, family history of CAD, obesity. Risk Scores: Score 0 - 3: 2.5% MACE over next 6 weeks - Discharge Home Score 4 - 6: 20.3% MACE over next 6 weeks - Admit for Clinical Observation Score 7 - 10: 72.7% MACE over next 6 weeks - Early Invasive Strategies Current Medications: Current Medications Medications (Trade) Dose Ordered Sig/Sun Start Time Stop Time Status Last Admin Dose Admin Fentanyl Citrate (Fentanyl 2ml Vial) 50 mcg PRN Q15MIN PRN 10/17/21 05:00 10/18/21 04:59 10/17/21 05:02 50 MCG Iohexol (Omnipaque 300 Mg/ml) 75 ml 1X ONCE 10/17/21 05:00 10/17/21 05:01 UNV Ondansetron HCl (Zofran) 4 mg 1X ONCE 10/17/21 05:00 10/17/21 05:01 DC 10/17/21 05:01 4 MG Sodium Chloride 1,000 ml @ 1,000 mls/hr Q1H 10/17/21 05:00 10/17/21 05:59 10/17/21 05:01 1,000 MLS/HR Allergies: Allergies: Allergies Coded Allergies Type Severity Reaction Last Updated Verified ibuprofen Adverse Reaction Mild Upset stomach 10/17/21 Yes Physical Exam: PE: Constitutional: Alert, afebrile, appears in moderate discomfort. [] HENT: Normocephalic, atraumatic, bilateral external ears normal, oropharynx moist, no oral exudates, nose normal. [] Eyes: PERRLA, EOMI, conjunctiva normal, no discharge. [] Neck: Normal range of motion, no tenderness, supple, no stridor. [] Cardiovascular:Heart rate regular rhythm, no murmur [] Lungs & Thorax: Bilateral breath sounds clear to auscultation [] Abdomen: Bowel sounds normal, soft, suprapubic and left lower quadrant tenderness to palpation, no guarding or rebound tenderness, no masses, no pulsatile masses. Rectal examination: No external hemorrhoids or anal fissures, small amount of bright red blood present on digital exam [] Skin: Warm, dry, no erythema, no rash. [] Back: No tenderness, no CVA tenderness. [] Extremities: No tenderness, no cyanosis, no clubbing, ROM intact, no edema. [] Neurologic: Alert and oriented X 3, normal motor function, normal sensory function, no focal deficits noted. [] Current Patient Data: Labs: Laboratory Tests Test 10/17/21 04:20 White Blood Count 12.0 x10^3/uL (4.0-11.0) H Red Blood Count 4.97 x10^6/uL (3.50-5.40) Hemoglobin 14.9 g/dL (12.0-15.5) Hematocrit 45.7 % (36.0-47.0) Mean Corpuscular Volume 92 fL (79-100) Mean Corpuscular Hemoglobin 30 pg (25-35) Mean Corpuscular Hemoglobin Concent 33 g/dL (31-37) Red Cell Distribution Width 14.9 % (11.5-14.5) H Platelet Count 334 x10^3/uL (140-400) Neutrophils (%) (Auto) 75 % (31-73) H Lymphocytes (%) (Auto) 20 % (24-48) L Monocytes (%) (Auto) 5 % (0-9) Eosinophils (%) (Auto) 0 % (0-3) Basophils (%) (Auto) 0 % (0-3) Neutrophils # (Auto) 9.0 x10^3/uL (1.8-7.7) H Lymphocytes # (Auto) 2.3 x10^3/uL (1.0-4.8) Monocytes # (Auto) 0.5 x10^3/uL (0.0-1.1) Eosinophils # (Auto) 0.1 x10^3/uL (0.0-0.7) Basophils # (Auto) 0.0 x10^3/uL (0.0-0.2) Laboratory Tests 10/17/21 04:20 Laboratory Tests Test 10/17/21 04:15 10/17/21 04:20 10/17/21 05:05 Stool Occult Blood Positive White Blood Count 12.0 x10^3/uL Red Blood Count 4.97 x10^6/uL Hemoglobin 14.9 g/dL Hematocrit 45.7 % Mean Corpuscular Volume 92 fL Mean Corpuscular Hemoglobin 30 pg Mean Corpuscular Hemoglobin Concent 33 g/dL Red Cell Distribution Width 14.9 % Platelet Count 334 x10^3/uL Neutrophils (%) (Auto) 75 % Lymphocytes (%) (Auto) 20 % Monocytes (%) (Auto) 5 % Eosinophils (%) (Auto) 0 % Basophils (%) (Auto) 0 % Neutrophils # (Auto) 9.0 x10^3/uL Lymphocytes # (Auto) 2.3 x10^3/uL Monocytes # (Auto) 0.5 x10^3/uL Eosinophils # (Auto) 0.1 x10^3/uL Basophils # (Auto) 0.0 x10^3/uL Sodium Level 140 mmol/L Potassium Level 3.7 mmol/L Chloride Level 104 mmol/L Carbon Dioxide Level 31 mmol/L Anion Gap 5 Blood Urea Nitrogen 23 mg/dL Creatinine 0.8 mg/dL Estimated GFR (Cockcroft-Gault) 76.9 BUN/Creatinine Ratio 29 Glucose Level 112 mg/dL Calcium Level 8.7 mg/dL Total Bilirubin 0.2 mg/dL Aspartate Amino Transf (AST/SGOT) 18 U/L Alanine Aminotransferase (ALT/SGPT) 15 U/L Alkaline Phosphatase 82 U/L Total Protein 6.6 g/dL Albumin 3.4 g/dL Albumin/Globulin Ratio 1.1 Lipase 169 U/L Serum Test, Qualitative Negative Urine Collection Type Unknown Urine Color (Auto) Yellow Urine Turbidity Hazy Urine pH (Auto) 5.5 Urine Specific [place] 1.032 Urine Protein (Auto) 30 mg/dL Urine Glucose (Auto)(UA) Negative mg/dL Urine Ketones (Auto) Negative mg/dL Urine Blood (Auto) Negative Urine Nitrite Negative Urine Bilirubin (Auto) Negative Urine Urobilinogen (Auto) Normal mg/dL Urine Leukocyte Esterase (Auto) Small Urine RBC 0 /HPF Urine WBC 5-10 /HPF Urine Squamous Epithelial Cells Few /LPF Urine Bacteria Few /HPF Urine Hyaline Casts Occasional /HPF Urine Mucus Mod /LPF Current Medications Medications (Trade) Dose Ordered Sig/Sun Route PRN Reason Start Time Stop Time Status Last Admin Dose Admin Fentanyl Citrate (Fentanyl 2ml Vial) 50 mcg PRN Q15MIN PRN IV PAIN GREATER THAN 3/10 10/17/21 05:00 10/18/21 04:59 10/17/21 05:02 Sodium Chloride 1,000 ml @ 1,000 mls/hr Q1H IV 10/17/21 05:00 10/17/21 05:59 10/17/21 05:01 Ondansetron HCl (Zofran) 4 mg 1X ONCE IVP 10/17/21 05:00 10/17/21 05:01 DC 10/17/21 05:01 Iohexol (Omnipaque 300 Mg/ml) 75 ml 1X ONCE IV 10/17/21 05:30 10/17/21 05:31 DC 10/17/21 05:15 Info (CONTRAST GIVEN -- Rx MONITORING) 1 each PRN DAILY PRN MC SEE COMMENTS 10/17/21 05:15 10/19/21 05:14 Vital Signs: Vital Signs Date Time Temp Pulse Resp B/P (MAP) Pulse Ox O2 Delivery O2 Flow Rate FiO2 10/17/21 05:02 20 98 Room Air 10/17/21 04:15 97.6 80 118/71 (87) 97.6 EKG: EKG: Not performed [] Radiology/Procedures: Radiology/Procedures: [facility] [id number] [place] [address] IMAGING REPORT Signed PATIENT: CHELSEA GIRARD ACCOUNT: [id number] : 1975 LOCATION: ER AGE: 46 SEX: F EXAM STATUS: REG ER ORD. PHYSICIAN: LORETTA HENLEY MD REASON: lower abdominal pain, blood in stool;OMNI 300, 75ML PROCEDURE: CT ABD PELV W/ IV CONTRST ONLY CT ABDOMEN+PELVIS W History: Lower abdominal pain. Blood in stool. Comparison: None. Technique: CT of the abdomen and pelvis with intravenous contrast. Findings: Minimal atelectasis in the lung bases. The liver demonstrate mild fatty infiltration of the falciform ligament. The gallbladder is surgically absent. The common bile duct measures 9 mm and there is mild intrahepatic biliary ductal dilatation. The pancreas, spleen and adrenal glands are within normal limits. There is a 8 mm exophytic renal mass at the posterior left inferior hilar lip (axial image 32). No hydronephrosis or nephrolithiasis. Postsurgical changes from gastric bypass. Mild fluid and gas within the pancreaticobiliary limb. No abnormal dilation of the pancreaticobiliary limb. The antecolic alimentary limb is nondilated. Patent appearing jejunojejunostomy in the left midabdomen. The distal small bowel is not dilated. No evidence of appendicitis. Mild wall thickening of the descending colon with trace pericolonic inflammatory changes. The bladder is decompressed. Status post hysterectomy. No free intraperitoneal air or fluid. The vasculature is within normal limits. The osseous structures and soft tissues are unremarkable. Impression: 1. Minimal pericolonic inflammatory changes at the descending colon which demonstrates mild wall thickening in the setting of underdistention. This may represent mild or early colitis. No significant diverticular disease. 2. 8 mm exophytic lesion left kidney posterior inferior hilar lip is in completely characterized. May represent cyst with hemorrhagic or proteinaceous content, however cannot exclude renal mass. Recommend dedicated MRI or CT of the kidneys for further evaluation. 3. Status post cholecystectomy with mild intrahepatic and common bile duct dilatation. Correlate for clinical evidence of cholestasis. Findings discussed with LORETTA HENLEY MD at 10/17/2021 5:40 AM. FOR INTERNAL CODING PURPOSES RESULT CODE: (C) ------ Exposure: One or more of the following individualized dose reduction techniques were utilized for this examination: 1. Automated exposure control 2. Adjustment of the mA and/or kV according to patient size 3. Use of iterative reconstruction technique. Electronically signed by: Kamaljit Hernandez MD (10/17/2021 5:40 AM) [facility] DICTATED and SIGNED BY: KAMALJIT HERNANDEZ MD DATE: 10/17/21521 [] Course & Med Decision Making: Course & Med Decision Making Pertinent Labs and Imaging studies reviewed. (See chart for details) Patient was started on IV fluids, fentanyl, and Zofran in the emergency department. CT imaging was performed which showed thickening of the distal colon consistent with acute colitis. Patient of note had a lesion on the left kidney that is difficult to determine whether this is a benign lesion or po ssible malignant lesion. I informed patient of these findings and need for follow-up with primary doctor as she will need to be scheduled to have either an MRI or dedicated CT of the kidneys to further evaluate this lesion. The patient was started on oral Cipro and Flagyl in the emergency department and will be prescribed 10-day course for treatment on outpatient basis. Recommend follow-up in the next 3 to 5 days with primary care provider for reevaluation and recommend return to the emergency department for any worsening symptoms. Patient voiced understanding and in agreement with treatment plan. [] Dragon Disclaimer: Dragon Disclaimer: This electronic medical record was generated, in whole or in part, using a voice recognition dictation system. Departure Departure Impression: Primary Impression: Colitis Additional Impression: Renal lesion Disposition: HOME / SELF CARE / HOMELESS Condition: IMPROVED Referrals: CYNDI MCNULTY MD (PCP) Patient Instructions: Colitis Additional Instructions: In addition to colitis, your CT imaging noted a lesion on your left kidney. This will need additional imaging such as an MRI or dedicated CT scan of the kidneys to further evaluate the identity of this particular lesion. This may be a possible cyst, however imaging will need to be performed to rule out a kidney mass or possible cancer. This can be ordered by your primary care provider on an outpatient basis. Be sure to follow-up with your primary doctor in the next 3 to 5 days for reevaluation. Return to the emergency department for any worsening symptoms. Scripts Ondansetron (ONDANSETRON ODT) 4 Mg Tab.rapdis 1 TAB PO Q8HRS PRN for NAUSEA/VOMITING, #16 TAB Prov: LORETTA HENLEY MD 10/17/21 Hydrocodone Bit/Acetaminophen (HYDROCODONE-APAP 5-325 ) 1 Tab Tablet 1 TAB PO Q4-6HRS PRN for PAIN, #18 TAB 0 Refills Prov: LORETTA HENLEY MD 10/17/21 Metronidazole (METRONIDAZOLE) 500 Mg Tablet 1 TAB PO TID for 10 Days, #30 TAB 0 Refills Prov: LORETTA HENLEY MD 10/17/21 Ciprofloxacin Hcl (CIPRO) 500 Mg Tablet 1 TAB PO BID for 10 Days, #20 TAB 0 Refills Prov: LORETTA HENLEY MD 10/17/21 LORETTA HENLEY MD Oct 17, 2021 05:08
[2021-10-17 05:09] LABS: ALBUMIN 3.4 g/dL (3.4-5.0); ALBUMIN/GLOBULIN RATIO 1.1 (1.0-1.7); TOTAL BILIRUBIN 0.2 mg/dL (0.2-1.0); TOTAL PROTEIN 6.6 g/dL (6.4-8.2)
[2021-10-17] MEDS ORDERED: CONTRAST GIVEN. MC PRN (05:15)
[2021-10-17 05:16] LABS: FECAL OB PT POSITIVE (NEG)
[2021-10-17 05:26] LABS: BACTERIA,URINE FEW /HPF (0-FEW); HYALINE CASTS, URINE OCCASIONAL /HPF; RBC,URINE 0 /HPF (0-2)
[2021-10-17] MEDS ORDERED: IOHEXOL 300 MG/ML 100ML VIAL. IV ONE (05:30)
--- NOTE | 2021-10-17 05:42 | RAD ---
CT ABDOMEN+PELVIS W History: Lower abdominal pain. Blood in stool. Comparison: None. Technique: CT of the abdomen and pelvis with intravenous contrast. Findings: Minimal atelectasis in the lung bases. The liver demonstrate mild fatty infiltration of the falciform ligament. The gallbladder is surgically absent. The common bile duct measures 9 mm and there is mild intrahepatic biliary ductal dilatation. The pancreas, spleen and adrenal glands are within normal li mits. There is a 8 mm exophytic renal mass at the posterior left inferior hilar lip (axial image 32). No hydronephrosis or nephrolithiasis. Postsurgical changes from gastric bypass. Mild fluid and gas within the pancreaticobiliary limb. No a bnormal dilation of the pancreaticobiliary limb. The antecolic alimentary limb is nondilated. Patent appearing jejunojejunostomy in the left midabdomen. The distal small bowel is not dilated. No evidenc e of appendicitis. Mild wall thickening of the descending colon with trace pericolonic inflammatory c hanges. The bladder is decompressed. Status post hysterectomy. No free intraperitoneal air or fluid. The vasc ulature is within normal limits. The osseous structures and soft tissues are unremarkable. Impression: 1. Minimal pericolonic inflammatory changes at the descending colon which demonstrates mild wall thi ckening in the setting of underdistention. This may represent mild or early colitis. No significant d iverticular disease. 2. 8 mm exophytic lesion left kidney posterior inferior hilar lip is incompletely characterized. May represent cyst with hemorrhagic or proteinaceous content, however cannot exclude renal mass. Recomme nd dedicated MRI or CT of the kidneys for further evaluation. 3. Status post cholecystectomy with mild intrahepatic and common bile duct dilatation. Correlate for clinical evidence of cholestasis. Findings discussed with LORETTA HENLEY MD at 10/17/2021 5:40 AM. FOR INTERNAL CODING PURPOSES RESULT CODE: (C) ------ Exposure: One or more of the following individualized dose reduction techniques were utilized for thi s examination: 1. Automated exposure control 2. Adjustment of the mA and/or kV according to patient size 3. Use of iterative reconstruction technique. Electronically signed by: Kamaljit Bautista MD (10/17/2021 5:40 AM) [facility]
[2021-10-17] MEDS ORDERED: HYDR-2761 PO (05:55)
[2021-10-17] MEDS ORDERED: CIPR500T94 PO (05:55)
[2021-10-17] MEDS ORDERED: ONDA4TAB12 PO (05:55)
[2021-10-17] MEDS ORDERED: METR-34 PO (05:55)
[2021-10-17 06:15] VITALS: BP 128/72
[2021-10-17] MEDS ORDERED: metroNIDAZOLE 500 MG TABLET PO ONE (06:30)
[2021-10-17] MEDS ORDERED: CIPROFLOXACIN HCL 250 MG TABLET. PO ONE (06:30)
== END 2021-10-17 06:25 | disposition home or self-care (01) ==
LOC: ER 04:08
DX: K52.9 Noninfective gastroenteritis and colitis, unspecified (principal); N28.9 Disorder of kidney and ureter, unspecified; Z90.49 Acquired absence of other specified parts of digestive tract; Z90.710 Acquired absence of both cervix and uterus; Z95.1 Presence of aortocoronary bypass graft; Z88.8 Allergy status to other drugs, medicaments and biological substances
CPT/HCPCS: 36415; 74177; 80053; 81001; 82274; 83690; 84703; 85025; 87086; 96361; 96374; 96375; 99285; J2405; J3010; J7030; Q9967

== ENCOUNTER → 2021-12-08 | Outpatient (CLI) | payer MEDICAID ==
[~2021-12-08] MED LIST changes: +CIPR500T94 PO; +HYDR-2761 PO; +METR-34 PO
--- NOTE | 2021-12-09 07:48 | KCIC ---
EXAMINATION: MRI abdomen without IV contrast. INDICATION:46 years, Female, left renal lesion seen on CT exam. Further evaluation. TECHNIQUE: Multiplanar multisequence MRI of the abdomen was performed. COMPARISON: CT dated 03/19/1932. FINDINGS: LOWER CHEST: Unremarkable. ABDOMEN: Within the limitation of noncontrast exam, Redemonstrated 0.8 cm exophytic lesion off the posterior medial cortex interpolar left kidney, appear s bright on T1 and dark T2 weighted images without diffusion restriction. No hydronephrosis in either kidney. Visualized liver is unremarkable with no suspicious focal lesion. No steatosis or iron deposition. Ch olecystectomy. Similar prominent central intrahepatic and extrahepatic ducts with smooth tapering dis tally. The maximum diameter of the common bile duct measures 7 mm, unchanged since prior exam. No dolly ling defect to suggest choledocholithiasis. Spleen and pancreas are unremarkable. No adrenal nodule. No bowel dilation. No lymphadenopathy. Normal caliber abdominal aorta. No ascites. MUSCULOSKELETAL STRUCTURES: No suspicious osseous lesion. IMPRESSION: Redemonstrated 8mm left renal lesion, incompletely evaluated due to lack of IV contrast. Based on sig nal characteristics, findings suggesting of complicated hemorrhagic/proteinaceous cyst. Recommend 3 m onths follow-up with renal ultrasound. Electronically signed by: Chad Roy MD (12/08/2021 5:07 PM) [id number]
== END ==
LOC: KCIC MRI 10:55
PROVIDERS: ATTEND Family Medicine
DX: N28.89 Other specified disorders of kidney and ureter (principal); Z90.49 Acquired absence of other specified parts of digestive tract
CPT/HCPCS: 74181